=== PATIENT | female | born 1960 | race Caucasian/White ===

== ENCOUNTER 2017-02-20 11:43 | Inpatient (IN) ==
--- NOTE | 2017-02-20 12:11 | Emergency Department Report ---
Seizure HPI - General Chief Complaint: Seizure <Magdi Crowder Q - 02/20/17 16:49> Stated Complaint: seizure <Magdi Crowder Q - 02/20/17 16:49> Time Seen by Provider: 02/20/17 12:04 <Magdi Crowder Q - 02/20/17 16:49> Source: EMS, other ([facility] nurses who did call report) <JoeyFany Zulema 02/20/17 12:12> Mode of arrival: EMS <BettechristianoFany Zulema 02/20/17 12:12> Limitations: altered mental status <BettechristianoFany Zulema 02/20/17 12:12> - History of Present Illness MD complaint: seizure <JoeyFany Zulema 02/20/17 12:12> Onset (ago): minute(s) (20 minutes ago approximately) <BettechristianoFany Zulema 12:12> Description of Episode: loss of consciousness, bowel incontinence <Bettechristiano Fany Zulema 02/20/17 12:12> Witnessed: yes - by bystander <BettechristianoFany N 02/20/17 12:12> Trauma: No <JoeyFany Zulema 02/20/17 12:12> Seizure History: none <BettechristianoFany Zulema 02/20/17 12:12> Place: other ([place]) <JoeyFany Zulema 02/20/17 12:12> Possible Precipitating Event: lack of sleep, stress, medication <BettechristianoFany Zulema 02/20/17 12:12> Associated symptoms: other (Unable to obtain associated symptoms due to patient status) <BettechristianoFany Zulema 02/20/17 12:12> Treatments prior to arrival: none <BettechristianoFany Zulema 02/20/17 12:12> - Related Data Home Medications Medication Instructions Recorded Confirmed Acetaminophen 650 mg PO Q4H PRN 02/20/17 02/20/17 Alum-Mag Hydroxide-Simeth Liq 30 ml PO Q2H PRN 02/20/17 02/20/17 Benadryl 50 mg INJ Q8H PRN 02/20/17 02/20/17 Haldol 5 mg INJ Q4H PRN 02/20/17 02/20/17 Haldol 5 mg PO Q4H PRN 02/20/17 02/20/17 LORazepam INJ 2 mg INJ Q4H PRN 02/20/17 02/20/17 Lorazepam 2 mg PO Q4H PRN 02/20/17 02/20/17 Milk of Magnesia 30 ml PO DAILY PRN 02/20/17 02/20/17 Nicotine 1 patch TD DAILY 02/20/17 02/20/17 Nicotine Gum 2 mg PO Q2H PRN 02/20/17 02/20/17 Vistaril 50 mg PO Q8H PRN 02/20/17 02/20/17 <Magdi Crowder Q - 02/20/17 16:49> Allergies Allergy/AdvReac Type Severity Reaction Status Date / Time No Known Allergies Allergy Verified 02/20/17 11:56 <Magdi Crowder Q - 02/20/17 16:49> Review of Systems Limitations: ROS unobtainable due to patient's medical condition (Obtained from nurse at as far as recent history) <Fany Cook N 02/20/17 12:12> Constitutional: Reports: weight change (has had weight loss over the last few months). Denies: fever, chills <Rajeev Cooka 02/20/17 12:12> ENT: Denies: throat pain <NoRajeev alvaradoa 02/20/17 12:12> Cardiovascular: Denies: syncope <NoRajeev alvaradoa 02/20/17 12:12> Respiratory: Denies: cough <NoDyeresa 02/20/17 12:12> Gastrointestinal: Denies: nausea, vomiting, diarrhea <NoDyeresa 12:12> Integumentary: Denies: rash <NoRajeev alvaradoa 02/20/17 12:12> Neurological: Reports: confusion <NoRajeev alvaradoa 02/20/17 12:12> Psychiatric: Reports: depression, suicidal thoughts, visual hallucinations < Rajeev Cooka N 02/20/17 12:12> PFSH Patient Stated Medical History Seizures Yes: TODAY Depression Yes <Magdi Crowdre Q - 02/20/17 16:49> Patient Stated Medical History Seizures Yes: TODAY Depression Yes <Fany Cook 02/20/17 16:39> Surgical History: Unable to obtain due to patient status <Fany Cook 10/08 16:39> Smoking status: Never smoker <Fany Cook 02/20/17 16:39> Substance use type: does not use <Fany Cook 02/20/17 16:39> Alcohol intake frequency: does not drink <Fany Cook 02/20/17 16:39> Physical Exam - Limitations Limitations: altered mental status <Fany Cook 02/20/17 12:12> - General General appearance: alert, in no apparent distress <Fany Cook 02/20/17 12:12> - Normal Exams: Head:: Normocephalic without trauma <Fany Cook 02/20/17 12:12> Eyes:: Pupils are PERRLA w/ EOMI <Fany Cook 02/20/17 12:12> ENMT:: No facial trauma, nasal exudates, pharyngeal erythema, or exudates are noted <Fany Cook 02/20/17 12:12> Neck:: Full range of motion, without adenopathy, JVD, bruits or thyromegaly < Fany Cook 02/20/17 12:12> Chest/Respirations:: Clear all guillaume, with good airflow, and symmetry bilaterally <Fany Cook 02/20/17 12:12> Musculoskeletal:: No tenderness, or deformity noted, good range of motion, all extremities <Fany Cook 02/20/17 12:12> Integumentary:: No rashes, hives, or bruising noted <Fany Cook 02/20/17 12:12> Neurological:: Patient is alert <Fany Cook 02/20/17 12:12> - Cardiovascular Cardiovascular exam: Present: normal rhythm, normal heart sounds. Absent: regular rate (tachycardia) <Fany Cook 02/20/17 12:12> - Abdominal Exam Abdominal exam: Present: soft, tenderness (says "ow" when abdomen palpated but is not guarding at all). Absent: guarding, rebound <Fany Cook 02/20/17 12:12> - Neurological Exam Neurological exam: Present: alert, other (States that she does not know where she is. She does follow commands but not consistently) <Fany Cook N 12:12> - Psychiatric Psychiatric exam: Present: agitated <Fany Cook 02/20/17 12:12> Course - Consultations Consultation #1: Did speak with Dr Bobby regarding HPI, labs, CT, history, and examination. He does recommend IV decadron at this time. He is ok with admission to [facility] and proceeding with workup to find primary source of cancer including CT of chest/ abdomen/pelvis today. <Fany Cook N 02/20/17 16:39> Time: 13:56 <Fany Cook 02/20/17 14:11> Additional Consultation(s): [id number]-I did talk with Mary Saeedkhadijahsunitha regarding CT results showing brain edema and lesions most likely metastatic disease. I did inform him of consult conversation with Oncology and will try for admission here at [facility] for workup. He does live 3 hours away and will come to the hospital. His daughter does live closer, in [place], and he will have her come to hospital to help with history and decision making. <Fany Cook 02/20/17 14:11> Vital Signs Temperature 98.7 F 02/20/17 11:45 Pulse Rate 132 H 02/20/17 11:45 Respiratory Rate 24 02/20/17 11:45 Blood Pressure 129/109 H 02/20/17 11:45 Pulse Oximetry 94 02/20/17 11:45 Temperature 100.9 F H 02/20/17 16:10 Pulse Rate 102 H 02/20/17 16:10 Respiratory Rate 32 H 02/20/17 16:10 Blood Pressure 107/59 02/20/17 16:10 Pulse Oximetry 96 02/20/17 16:10 <aMgdi Crowder Q - 02/20/17 16:49> Seizure - MDM Narrative Medical decision making narrative: Elevated WBC of 14.3 with 86% neutrophils noted. Lactate elevated at 2.8 and procalcitonin is 2.18. UA is normal. UDS is negative. Lactate and procal may be elevated due to recent seizure and not sepsis. CT scan does show lesion in the brain with surrounding edema. Did talk with Dr johnson. He does recommend 20gm Dexamethasone IV x1 in ER, MRI of brain and CT of chest/abdomen and pelvis. Did speak with Dr Mejia with the hospitalist service. He will admit at this time. Did also speak with Harry Kaur, her and update given on ER visit, labs, and Ct. Her daughter Blanca also in unit and Adrienne did not recognize her. She was updated as well on patient status and all questions answered at this time. <Fany Cook - 02/20/17 16:39> - Differential Diagnosis Likely: focal seizure, generalized seizure, new onset seizure <Fany Cook - 02/20/17 12:12> - Lab Data Attestation: I reviewed the patient's lab results. <Fany Cook N - 02/20/17 16:39> Result diagrams: 02/20/17 12:18 02/20/17 12:18 <Magdi Crowder Q - 02/20/17 16:49> Lab Results 02/20/17 02/20/17 02/20/17 Range/Units 12:18 12:18 12:34 WBC 14.3 H (4.5-11.0) T/MM3 RBC 4.26 (4.00-5.20) M/MM3 Hgb 10.8 L (12-16) GM/DL Hct 36.1 (36-46) % MCV 84.7 (80-100) UM3 MCH 25.4 L (26-34) UUG MCHC 29.9 L (31-37) GM/DL RDW Std Deviation 47.7 (36.9-50.2) FL Plt Count 429 H (130-400) T/MM3 MPV 8.9 L (9.4-12.4) UM3 Immature Gran % (Auto) Not performed Neut % (Auto) Not performed Lymph % (Auto) Not performed [place] % (Auto) Not performed Eos % (Auto) Not performed Baso % (Auto) Not performed Neut # Not performed Lymph # Not performed [place] # Not performed Baso # Not performed Abs Immat Gran (auto) Not performed Neutrophils % (Manual) 86.0 H (33-66) % Band Neutrophils % 4.0 (0-6) % Lymphocytes % (Manual) 7.0 L (23-45) % Monocytes % (Manual) 1.0 (0-9.0) % Basophils % (Manual) 2.0 (0-2) % Neutrophils # (Manual) 12.3 H (1.8-7.7) T/MM3 Band Neutrophils # 0.6 T/MM3 Lymphocytes # (Manual) 1.0 (1-4.8) T/MM3 Monocytes # (Manual) 0.1 (0-0.8) T/MM3 Basophils # (Manual) 0.3 H (0-0.2) T/MM3 RBC Morph Comment 1+ hypochromasia Turbidity 20 (0-20) Sodium 140 (134-144) MEQ/L Potassium 4.9 (3.6-5) MEQ/L Chloride 102 (98-107) MEQ/L Carbon Dioxide 26 (22-30) MEQ/L Anion Gap 12 (5-15) MEQ/L BUN 14.0 (7-17) MG/DL Creatinine 0.7 (0.7-1.2) MG/DL GFR Calculation 86 BUN/Creatinine Ratio 20 (6-26) RATIO Glucose 188 H (65-110) MG/DL Calculated Osmolality 275 (261-280) MOSM/KG Calcium 8.9 (8.4-10.2) MG/DL Total Bilirubin 0.30 (0.20-1.30) MG/DL Icterus Index 2 (0-7) AST 27 (14-36) U/L ALT 13 (9-52) U/L Alkaline Phosphatase 107 (38-126) U/L Total Protein 6.9 (6.3-8.2) G/DL Albumin 3.5 (3.5-5.0) G/DL Globulin 3.4 (2.4-3.6) G/DL Albumin/Globulin Ratio 1.0 L (1.1-2.2) RATIO Plasma Lactate (0.6-2.2) MMOL/L Procalcitonin NG/ML Specimen Hemolysis 15 (0-25) Ur Collection Type Urine, catheter Urine Color Yellow (YELLOW) Urine Clarity Clear Urine pH 5.5 (5.0-8.0) Ur Specific [place] 1.010 L (1.015-1.025) Urine Protein Negative (NEGATIVE) Urine Glucose (UA) Negative (NEGATIVE) Urine Ketones Negative (NEGATIVE) Urine Occult Blood Negative (NEGATIVE) Urine Nitrate Negative (NEGATIVE) Urine Bilirubin Negative (NEGATIVE) Urine Urobilinogen 0.2 (NORMAL) EU/DL Ur Leukocyte Esterase Negative (NEGATIVE) Urinalysis Comment Microscopic not ind. Urine Opiates Screen ng/mL Ur Oxycodone Screen ng/mL Urine Methadone Screen ng/mL Ur Propoxyphene Screen ng/mL Ur Barbiturates Screen ng/mL U Tricyclic Antidepress ng/mL Ur Phencyclidine Scrn ng/mL Ur Amphetamines Screen ng/mL U Methamphetamines Scrn ng/mL U Benzodiazepines Scrn ng/mL Urine Cocaine Screen ng/mL U Cannabinoids Screen ng/mL 02/20/17 02/20/17 02/20/17 Range/Units 12:34 13:13 13:13 WBC (4.5-11.0) T/MM3 RBC (4.00-5.20) M/MM3 Hgb (12-16) GM/DL Hct (36-46) % MCV (80-100) UM3 MCH (26-34) UUG MCHC (31-37) GM/DL RDW Std Deviation (36.9-50.2) FL Plt Count (130-400) T/MM3 MPV (9.4-12.4) UM3 Immature Gran % (Auto) Neut % (Auto) Lymph % (Auto) [place] % (Auto) Eos % (Auto) Baso % (Auto) Neut # Lymph # [place] # Baso # Abs Immat Gran (auto) Neutrophils % (Manual) (33-66) % Band Neutrophils % (0-6) % Lymphocytes % (Manual) (23-45) % Monocytes % (Manual) (0-9.0) % Basophils % (Manual) (0-2) % Neutrophils # (Manual) (1.8-7.7) T/MM3 Band Neutrophils # T/MM3 Lymphocytes # (Manual) (1-4.8) T/MM3 Monocytes # (Manual) (0-0.8) T/MM3 Basophils # (Manual) (0-0.2) T/MM3 RBC Morph Comment Turbidity (0-20) Sodium (134-144) MEQ/L Potassium (3.6-5) MEQ/L Chloride (98-107) MEQ/L Carbon Dioxide (22-30) MEQ/L Anion Gap (5-15) MEQ/L BUN (7-17) MG/DL Creatinine (0.7-1.2) MG/DL GFR Calculation BUN/Creatinine Ratio (6-26) RATIO Glucose (65-110) MG/DL Calculated Osmolality (261-280) MOSM/KG Calcium (8.4-10.2) MG/DL Total Bilirubin (0.20-1.30) MG/DL Icterus Index (0-7) AST (14-36) U/L ALT (9-52) U/L Alkaline Phosphatase (38-126) U/L Total Protein (6.3-8.2) G/DL Albumin (3.5-5.0) G/DL Globulin (2.4-3.6) G/DL Albumin/Globulin Ratio (1.1-2.2) RATIO Plasma Lactate 2.8 H (0.6-2.2) MMOL/L Procalcitonin 2.16 H* NG/ML Specimen Hemolysis (0-25) Ur Collection Type Urine Color (YELLOW) Urine Clarity Urine pH (5.0-8.0) Ur Specific [place] (1.015-1.025) Urine Protein (NEGATIVE) Urine Glucose (UA) (NEGATIVE) Urine Ketones (NEGATIVE) Urine Occult Blood (NEGATIVE) Urine Nitrate (NEGATIVE) Urine Bilirubin (NEGATIVE) Urine Urobilinogen (NORMAL) EU/DL Ur Leukocyte Esterase (NEGATIVE) Urinalysis Comment Urine Opiates Screen Negative ng/mL Ur Oxycodone Screen Negative ng/mL Urine Methadone Screen Negative ng/mL Ur Propoxyphene Screen Negative ng/mL Ur Barbiturates Screen Negative ng/mL U Tricyclic Antidepress Negative ng/mL Ur Phencyclidine Scrn Negative ng/mL Ur Amphetamines Screen Negative ng/mL U Methamphetamines Scrn Negative ng/mL U Benzodiazepines Scrn Negative ng/mL Urine Cocaine Screen Negative ng/mL U Cannabinoids Screen Negative ng/mL <Magdi Crowder Q - 02/20/17 16:49> Lab Results 06/01/17 06/01/17 06/01/17 Range/Units 12:18 12:18 12:34 WBC 14.3 H (4.5-11.0) T/MM3 RBC 4.26 (4.00-5.20) M/MM3 Hgb 10.8 L (12-16) GM/DL Hct 36.1 (36-46) % MCV 84.7 (80-100) UM3 MCH 25.4 L (26-34) UUG MCHC 29.9 L (31-37) GM/DL RDW Std Deviation 47.7 (36.9-50.2) FL Plt Count 429 H (130-400) T/MM3 MPV 8.9 L (9.4-12.4) UM3 Immature Gran % (Auto) Not performed Neut % (Auto) Not performed Lymph % (Auto) Not performed [place] % (Auto) Not performed Eos % (Auto) Not performed Baso % (Auto) Not performed Neut # Not performed Lymph # Not performed [place] # Not performed Baso # Not performed Abs Immat Gran (auto) Not performed Neutrophils % (Manual) 86.0 H (33-66) % Band Neutrophils % 4.0 (0-6) % Lymphocytes % (Manual) 7.0 L (23-45) % Monocytes % (Manual) 1.0 (0-9.0) % Basophils % (Manual) 2.0 (0-2) % Neutrophils # (Manual) 12.3 H (1.8-7.7) T/MM3 Band Neutrophils # 0.6 T/MM3 Lymphocytes # (Manual) 1.0 (1-4.8) T/MM3 Monocytes # (Manual) 0.1 (0-0.8) T/MM3 Basophils # (Manual) 0.3 H (0-0.2) T/MM3 RBC Morph Comment 1+ hypochromasia Turbidity 20 (0-20) Sodium 140 (134-144) MEQ/L Potassium 4.9 (3.6-5) MEQ/L Chloride 102 (98-107) MEQ/L Carbon Dioxide 26 (22-30) MEQ/L Anion Gap 12 (5-15) MEQ/L BUN 14.0 (7-17) MG/DL Creatinine 0.7 (0.7-1.2) MG/DL GFR Calculation 86 BUN/Creatinine Ratio 20 (6-26) RATIO Glucose 188 H (65-110) MG/DL Calculated Osmolality 275 (261-280) MOSM/KG Calcium 8.9 (8.4-10.2) MG/DL Total Bilirubin 0.30 (0.20-1.30) MG/DL Icterus Index 2 (0-7) AST 27 (14-36) U/L ALT 13 (9-52) U/L Alkaline Phosphatase 107 (38-126) U/L Total Protein 6.9 (6.3-8.2) G/DL Albumin 3.5 (3.5-5.0) G/DL Globulin 3.4 (2.4-3.6) G/DL Albumin/Globulin Ratio 1.0 L (1.1-2.2) RATIO Plasma Lactate (0.6-2.2) MMOL/L Procalcitonin NG/ML Specimen Hemolysis 15 (0-25) Ur Collection Type Urine, catheter Urine Color Yellow (YELLOW) Urine Clarity Clear Urine pH 5.5 (5.0-8.0) Ur Specific [place] 1.010 L (1.015-1.025) Urine Protein Negative (NEGATIVE) Urine Glucose (UA) Negative (NEGATIVE) Urine Ketones Negative (NEGATIVE) Urine Occult Blood Negative (NEGATIVE) Urine Nitrate Negative (NEGATIVE) Urine Bilirubin Negative (NEGATIVE) Urine Urobilinogen 0.2 (NORMAL) EU/DL Ur Leukocyte Esterase Negative (NEGATIVE) Urinalysis Comment Microscopic not ind. Urine Opiates Screen ng/mL Ur Oxycodone Screen ng/mL Urine Methadone Screen ng/mL Ur Propoxyphene Screen ng/mL Ur Barbiturates Screen ng/mL U Tricyclic Antidepress ng/mL Ur Phencyclidine Scrn ng/mL Ur Amphetamines Screen ng/mL U Methamphetamines Scrn ng/mL U Benzodiazepines Scrn ng/mL Urine Cocaine Screen ng/mL U Cannabinoids Screen ng/mL 02/20/17 02/20/17 02/20/17 Range/Units 12:34 13:13 13:13 WBC (4.5-11.0) T/MM3 RBC (4.00-5.20) M/MM3 Hgb (12-16) GM/DL Hct (36-46) % MCV (80-100) UM3 MCH (26-34) UUG MCHC (31-37) GM/DL RDW Std Deviation (36.9-50.2) FL Plt Count (130-400) T/MM3 MPV (9.4-12.4) UM3 Immature Gran % (Auto) Neut % (Auto) Lymph % (Auto) [place] % (Auto) Eos % (Auto) Baso % (Auto) Neut # Lymph # [place] # Baso # Abs Immat Gran (auto) Neutrophils % (Manual) (33-66) % Band Neutrophils % (0-6) % Lymphocytes % (Manual) (23-45) % Monocytes % (Manual) (0-9.0) % Basophils % (Manual) (0-2) % Neutrophils # (Manual) (1.8-7.7) T/MM3 Band Neutrophils # T/MM3 Lymphocytes # (Manual) (1-4.8) T/MM3 Monocytes # (Manual) (0-0.8) T/MM3 Basophils # (Manual) (0-0.2) T/MM3 RBC Morph Comment Turbidity (0-20) Sodium (134-144) MEQ/L Potassium (3.6-5) MEQ/L Chloride (98-107) MEQ/L Carbon Dioxide (22-30) MEQ/L Anion Gap (5-15) MEQ/L BUN (7-17) MG/DL Creatinine (0.7-1.2) MG/DL GFR Calculation BUN/Creatinine Ratio (6-26) RATIO Glucose (65-110) MG/DL Calculated Osmolality (261-280) MOSM/KG Calcium (8.4-10.2) MG/DL Total Bilirubin (0.20-1.30) MG/DL Icterus Index (0-7) AST (14-36) U/L ALT (9-52) U/L Alkaline Phosphatase (38-126) U/L Total Protein (6.3-8.2) G/DL Albumin (3.5-5.0) G/DL Globulin (2.4-3.6) G/DL Albumin/Globulin Ratio (1.1-2.2) RATIO Plasma Lactate 2.8 H (0.6-2.2) MMOL/L Procalcitonin 2.16 H* NG/ML Specimen Hemolysis (0-25) Ur Collection Type Urine Color (YELLOW) Urine Clarity Urine pH (5.0-8.0) Ur Specific [place] (1.015-1.025) Urine Protein (NEGATIVE) Urine Glucose (UA) (NEGATIVE) Urine Ketones (NEGATIVE) Urine Occult Blood (NEGATIVE) Urine Nitrate (NEGATIVE) Urine Bilirubin (NEGATIVE) Urine Urobilinogen (NORMAL) EU/DL Ur Leukocyte Esterase (NEGATIVE) Urinalysis Comment Urine Opiates Screen Negative ng/mL Ur Oxycodone Screen Negative ng/mL Urine Methadone Screen Negative ng/mL Ur Propoxyphene Screen Negative ng/mL Ur Barbiturates Screen Negative ng/mL U Tricyclic Antidepress Negative ng/mL Ur Phencyclidine Scrn Negative ng/mL Ur Amphetamines Screen Negative ng/mL U Methamphetamines Scrn Negative ng/mL U Benzodiazepines Scrn Negative ng/mL Urine Cocaine Screen Negative ng/mL U Cannabinoids Screen Negative ng/mL <Fany Cook N - 02/20/17 14:11> - Radiology Data MDM Radiology Attestation Statement: I reviewed the patient's radiology results. <Fany Cook N - 02/20/17 16:39> Disposition Clinical Impression: New onset seizure <Magdi Crowder Q - 02/20/17 16:49> Disposition: [address] [facility] Acute Care <Magdi Crowder Q - 02/20/17 16:49> Condition: Stable <Magdi Crowder Q - 02/20/17 16:49> Prescriptions: No Action Alum-Mag Hydroxide-Simeth Liq 30 ml PO Q2H PRN PRN Reason: Prn Orders Vistaril 50 mg PO Q8H PRN PRN Reason: Anxiety Haldol 5 mg INJ Q4H PRN PRN Reason: Agitation Lorazepam 2 mg PO Q4H PRN PRN Reason: Agitation Nicotine Gum 2 mg PO Q2H PRN PRN Reason: Prn Orders Acetaminophen 650 mg PO Q4H PRN PRN Reason: Pain /Fever Milk of Magnesia 30 ml PO DAILY PRN PRN Reason: Constipation Haldol 5 mg PO Q4H PRN PRN Reason: Agitation LORazepam INJ 2 mg INJ Q4H PRN PRN Reason: Agitation Benadryl 50 mg INJ Q8H PRN PRN Reason: Agitation Nicotine 1 patch TD DAILY <Magdi Crowder Q - 02/20/17 16:49> Time of Disposition: 15:25 <Magdi Crowder Q - 02/20/17 16:49> - Seen By: midlevel <Magdi Crwoder Q - 02/20/17 16:49> midlevel <Fany Cook N - 02/20/17 16:39>
[2017-02-20] MEDS: NS 1,000 ML IV SCH ×4 (12:17→20:30)
--- NOTE | 2017-02-20 13:15 | CT Scan Report ---
Indication: new onset seizures, altered LOC PROCEDURE: CT head/brain wo con: Encounter: Initial Comparison: None Technique: Axial CT images through the head were performed without contrast. Iterative Reconstruction dose reducing technique was utilized. FINDINGS: Focal areas of vasogenic edema in the left frontal lobe both superiorly and anteriorly. There is also a focus of rounded higher attenuation on axial image #37 measuring 0.7 cm in diameter. This could be arising from a gyrus or potentially extra-axial. This measures 45 Hounsfield units in density. There is also an area of gyral nodularity with higher attenuation seen on axial image #43 measuring 0.8 cm in diameter adjacent to the larger area of vasogenic edema. There is a small area of vasogenic edema noted in the right occipital lobe on axial image #22 with some possible gyral nodularity nearby. Scattered areas of low attenuation in the frontoparietal white matter consistent with chronic microvascular ischemia. No subdural or epidural hematoma identified. The ventricles are normal. No midline shift identified. No calvarial fracture. The mastoid air cells are clear. Paranasal sinuses are grossly clear. Impression: Areas of vasogenic edema in the left frontal and right parietal lobes with associated rounded higher attenuation nodules raising strong suspicion for metastatic disease. Intracranial infection is also within the differential diagnosis. Hemorrhagic contusions are felt to be less likely given the reported absence of head trauma. Recommend contrast enhanced MRI for further evaluation. Findings were discussed with Dr. Crowder at 1308 on February 20, 2017. .
[2017-02-20] MEDS ORDERED: DEXAMETHASONE 4 MG/ML INJECTION IVP ONE (13:55)
[2017-02-20] MEDS ORDERED: METOPROLOL 5mg/5ml INJECTION IVP ONE (14:55)
[2017-02-20] MEDS ORDERED: DEXAMETHASONE IV ONE (15:00)
[2017-02-20] MEDS ORDERED: NS IV ONE (15:00)
[2017-02-20] MEDS ORDERED: PHENYTOIN 100 MG/2 ML IV ONE (15:49)
[2017-02-20] MEDS ORDERED: ACETAMINOPHEN 325 MG TABLET PO PRN (17:01)
[2017-02-20] MEDS ORDERED: HALOPERIDOL 5 MG/ML INJECTION IM PRN (17:01)
[2017-02-20] MEDS ORDERED: LORazepam 2 MG TABLET PO PRN (17:01)
[2017-02-20] MEDS ORDERED: HydrOXYzine 50 MG TABLET PO PRN (17:01)
[2017-02-20] MEDS ORDERED: SALINE FLUSH 10ml SYRINGE ONE (17:26)
[2017-02-20] MEDS ORDERED: NS 100 ML ONE (17:26)
[2017-02-20] MEDS ORDERED: IOHEXOL 300mg/ml 100ml INJECTION ONE (17:26)
--- NOTE | 2017-02-20 17:26 | History & Physical Report ---
History of Present Illness Date: Chief complaint: New onset seizure HPI: Pt came to the ED refered from a psych facility where she had a witnessed grand mal seizure. Per available data I do not see any SSRI, or wellbutrin on this patient medication list. Also UDS was negative. Per ED reports, this event was witnessed; pt had loss of bowel control, and LOC. On initial workup pt has multiple brain lesions that could be infectious or neoplastic. WBC, Lactate and pro-calcitonin elevated. Calcium normal. Pt has H.O being paranoid for at least 5 years. Daughter reports pt had spells of aggresiveness and paranoia with her and brother and had been suicidal in the past. She had been diagnosed with bipolar dissorder and while on treatment apparently improved. No known H.O Cancer, uknown if pt has any risks for HIV, or if she has any auto-immune dissorder. She has been a heavy smoker for many years and has a reported wt loss since Junuary of about 50 pounds. No previuos H/O seizures. On initial interview pt appears to be paranoid. Would not open her mouth for exam. Pupills are about 2mm. Being so miotic I can not comment further, on her eye exam as she would not cooperate. No anisocoria. EOMI appear to be fine but she does not cooperate. She does not answer questions, so it is unknown how oriented she may be. Review of Systems ROS unobtainable: due to mental status Review of systems: Pt has had profound wt loss Un[place]w if fevers. Unknown if cancer. She is non verbal. Information obtained from her daughter who saw her last on . - Integumentary/Breasts Integumentary: Absent: rash - Neurological Neurological: Present: convulsions - Psychiatric Psychiatric: Present: paranoia PFS Patient Stated Medical History Seizures Yes: TODAY Other Infectious Yes Depression Yes Eating Disorder Yes: lack of eating since 09/2016 Surgical History: Unable to obtain due to patient status Smoking status: Never smoker Substance use type: unknown (Unknown H.O Drug abuse, UDS negative. ) Medications Home Medications Medication Instructions Recorded Confirmed Type Acetaminophen 650 mg PO Q4H PRN 02/20/17 02/20/17 History Alum-Mag Hydroxide-Simeth Liq 30 ml PO Q2H PRN 02/20/17 02/20/17 History Benadryl 50 mg INJ Q8H PRN 02/20/17 02/20/17 History Haldol 5 mg INJ Q4H PRN 02/20/17 02/20/17 History Haldol 5 mg PO Q4H PRN 02/20/17 02/20/17 History LORazepam INJ 2 mg INJ Q4H PRN 02/20/17 02/20/17 History Lorazepam 2 mg PO Q4H PRN 02/20/17 02/20/17 History Milk of Magnesia 30 ml PO DAILY PRN 02/20/17 02/20/17 History Nicotine 1 patch TD DAILY 02/20/17 02/20/17 History Nicotine Gum 2 mg PO Q2H PRN 02/20/17 02/20/17 History Vistaril 50 mg PO Q8H PRN 02/20/17 02/20/17 History Allergies Allergy/AdvReac Type Severity Reaction Status Date / Time No Known Allergies Allergy Verified 02/20/17 11:56 Exam Vital Signs: Temp Pulse Resp BP Pulse Ox 100.9 F H 102 H 32 H 107/59 96 02/20/17 16:10 02/20/17 16:10 02/20/17 16:10 02/20/17 16:10 02/20/17 16:10 Telemetry Rhythm: Sinus Rhythm Height: 5 ft 5 in Weight: 46.3 kg Comments: ON general exam this is a 56YO female that appears to be in NAD. She is not aggresive but refuses to cooperate with most of her physical exam. Unknown how oriented she is, apparently did not recognize her daughter. I do not see any signs of respiratory distress, she appears to be well perfused. - Constitutional Present: no acute distress, somnolent - Routine HEENT Exam Head: Present: normocephalic Eye: Present: EOMI, PERRL - Detailed Head Exam Comments: Pt does not cooperate to exam. - Routine Neck Exam Present: supple Comments: Pt does not cooperate to exam. - Routine Chest/Breast/Axilla Exam Comments: Pt does not cooperate to exam. - Routine Respiratory Exam Comments: Pt does not cooperate to exam. Results - Labs CBC & Chem 7: 02/20/17 12:18 02/20/17 12:18 Assessment and Plan DVT Prophylaxis: SCD's GI Prophylaxis: Protonix Assessment and Plan: This is a patient that presents with new onset seizures and multiple brain lesions. The initial report states this could be neoplastic or infectious. Pt has a 5 year H.O Psychiatric problems with psychosis. It would be very atypical to develop Schizophrenia at this age. Other problems including auto-immune dissorders, endocrine dissorders, nutritional deficiencies are possible. At this time will focus on possibility of a metastatic process with/without infection. Possible source of infection could be lungs (afer a seizure - aspiration) but pt is pretty much asymptomatic. H.O Heavy tobacco abuse favor a tumor, with lung cancer being a likely cause. Daughter states pt has NO KNOWN H.O TB, HIV, or cancer. CT report done today "..................................................... Impression: Areas of vasogenic edema in the left frontal and right parietal lobes with associated rounded higher attenuation nodules raising strong suspicion for metastatic disease. Intracranial infection is also within the differential diagnosis. Hemorrhagic contusions are felt to be less likely given the reported absence of head trauma. Recommend contrast enhanced MRI for further evaluation. ......................................................................" Differential diagnosis 1) New onset seizures, associated with multiple brain lesions. Pt was loaded with Dilantin - will continue at 100mg PO TID. a) Metastatic lesions from ? lung ? breast ? Other solid organs ? No hypercalcemia. b) Infection (With no known source at this time). No suggestion of emboli to the extremities to suspect endocarditis. Work up I have started workup as follows - will repeat Lactic acid if it is lower this could be related to seizure. If it is higher or the same this could be due to infection. Will check CT brain with contrast, CT Chest/Abdomen and Pelvis. This would assist in pointing a primary source of tumor (lungs, liver, pancreas, kindeys, etc) or an occult infection (liver abscess, diverticular abscess, etc). Will readdress once testing is complete. Pt was cultured anticipating the need of antibiotics. May need to consult oncology in the AM. 2) H/O Psychosis for 5 years. - May consult psychiatry in the AM. If initial workup favors infection will probably need ID to advise, and will check HIV, and for other processes ( i.e - if lungs - nocardia coverage would be needed). 3) Anemia, will workup electively. 4) Hyperglycemia. - Check HbA1c - Could be related to steroids. - Will do accuchecks and cover with insulin as needed. Sepsis Assessment - Evaluation Sepsis screening result: Severe Sepsis Risk Confirmed Suspected Infection: No SIRS Criteria: WBC > or equal to 12,000, blood sugar >120 in non-diabetic Hospital Course Summary Disclaimer: The visit summary below is not to be considered part of the above Progress Note.
[2017-02-20] MEDS: DEXAMETHASONE 4 MG/ML INJECTION IVP SCH (18:35)
[2017-02-20] MEDS: PANTOPRAZOLE 40 MG INJECTION IVP SCH (19:43)
[2017-02-20] MEDS ORDERED: PHENYTOIN 100 MG/2 ML IV SCH (21:00)
[2017-02-20] MEDS: SALINE FLUSH 10ml SYRINGE IV PRN (21:03)
[2017-02-21] MEDS: DEXAMETHASONE 4 MG/ML INJECTION IVP SCH ×5 (00:54→23:22)
[2017-02-21] MEDS: NS 1,000 ML IV SCH ×3 (01:17→18:12)
[2017-02-21] MEDS: PHENYTOIN 100 MG/2 ML IVP SCH ×3 (08:29→21:02)
[2017-02-21] MEDS: PANTOPRAZOLE 40 MG INJECTION IVP SCH (08:30)
[2017-02-21] MEDS: NICOTINE PATCH REMOVAL TD SCH (08:37)
--- NOTE | 2017-02-21 08:51 | CT Scan Report ---
Indication: New Cancer? PROCEDURE: CT head/chest/abd/pelv w con: Encounter: Initial Comparison: Head CT from the same date CT head with: Comparison: None Technique: Axial CT images through the head were performed with IV contrast. Iterative Reconstruction dose reducing technique was utilized. Contrast: Omnipaque 300 67 mL FINDINGS: Focal edema is again noted in the left frontal and parietal lobes. There is a round enhancing mass seen in the area of high attenuation noted previously in the subcortical left frontal lobe. This measures 8 to 9 mm in size. There is also an enhancing lesion in the left parietal lobe in the area of differential attenuation seen on the comparison CT measuring 9 mm in size. There is also an enhancing 6 mm mass at the right occipital ramirez-white junction. No acute intracranial hemorrhage. No obvious territorial stroke. No mass effect or midline shift. The ventricles are normal. The calvarium is intact. Paranasal sinuses and mastoid air cells are grossly clear. Impression: Intracranial metastases. CT chest, abdomen and pelvis with contrast. Comparison: None Technique: Axial CT images were performed through the chest, abdomen and pelvis after the administration of intravenous contrast. Coronal and sagittal two-dimensional reformats. Automated Exposure Control and Iterative Reconstruction dose reducing techniques were utilized. Contrast: Omnipaque 300 67 mL Findings: Chest: There are numerous confluent pleural masses seen filling the right chest cavity with volume loss and associated small pleural effusion. These are too numerous to count but are circumferential around the visceral and parietal pleura. The left lung shows a small nodule in the lingula measuring 0.7 cm in size. There is also a left lower lobe pulmonary nodule measuring 1.5 cm in size. No pneumonia or pneumothorax. The central airways are patent. The thyroid gland appears normal. No axillary adenopathy. There does not appear to be any true mediastinal adenopathy despite the pleural mass along the right mediastinal border. The heart size is normal. Great vessels are within normal limits. No pericardial effusion. There is some slightly increased density in the subareolar right breast area. Abdomen/pelvis: The liver enhances normally. Numerous gallstones within the gallbladder. No bile duct dilatation. The spleen, pancreas and adrenal glands are within normal limits. Small right renal stone. The knees are otherwise normal. No abdominal or pelvic lymphadenopathy. The bladder is mildly distended but otherwise normal. Uterus is unremarkable. No free fluid. No evidence of a bowel obstruction. Bone windows show degenerative change and scoliosis in the spine. No obvious lytic or blastic bony lesions. There are some mild right rib deformities which appear chronic. Impression: 1. Extensive pleural mass throughout the right chest. The appearance is most consistent with malignant mesothelioma with possible contralateral pulmonary metastases. The other differential considerations are pleural metastatic disease and invasive malignant thymoma. Recommend pleural biopsy. 2. No metastatic disease appreciated in the abdomen or pelvis. There is a preliminary report by [employer]. .
[2017-02-21] MEDS ORDERED: NICOTINE 21 MG PATCH TD SCH (09:00)
[2017-02-21] MEDS: NICOTINE 21 MG PATCH TD SCH (09:11)
--- NOTE | 2017-02-21 10:03 | Progress Note ---
Subjective: Pt is awake and conversant. Only complaint is abdominal pain if she tries to sit up in the bed. No seizures over night. Not agitated, still a bit paranoid. Objective Vital signs: Temp Pulse Resp BP Pulse Ox 98 F 82 25 H 126/73 95 02/21/17 03:45 02/21/17 08:00 02/21/17 08:00 02/21/17 09:00 02/21/17 08:00 Rhythm: Normal Sinus Rhythm Weight: 45.5 kg - Constitutional Present: no acute distress Comments: A bit more cooperative than yesterday. Pt is cachectic. - Routine HEENT Exam Head: Present: normocephalic Eye: Present: PERRL - Routine Respiratory Exam Present: CTA bilaterally - Routine Cardiovascular Exam Present: RRR - Routine Abdominal Exam Present: soft - Routine Extremities Exam Absent: cyanosis, clubbing, edema - Routine Skin Exam Present: dry - Routine Neurological Exam Present: alert - Routine Psychiatric Exam Present: paranoid Results - Labs CBC & Chem 7: 02/21/17 04:58 02/21/17 04:58 Labs: Short CBC 02/21/17 Range/Units 04:58 WBC 8.0 D (4.5-11.0) T/MM3 Hgb 10.5 L (12-16) GM/DL Hct 35.1 L (36-46) % Plt Count 420 H (130-400) T/MM3 BMP 02/21/17 04:58 Sodium 142 Potassium 4.0 D Chloride 104 Carbon Dioxide 25 BUN 10.0 Creatinine 0.6 L Glucose 138 H Calcium 8.7 Liver Function 02/21/17 Range/Units 04:58 Total Bilirubin 0.30 (0.20-1.30) MG/DL AST 27 (14-36) U/L ALT 23 (9-52) U/L Alkaline Phosphatase 113 (38-126) U/L Albumin 3.5 (3.5-5.0) G/DL Assessment and Plan Assessment and Plan: This is a patient that presented to us on 02/20 with new onset seizures and multiple brain lesions. Further exam showed multiple lung nodules suggesting of a primary tumor with brain mets. Pt was given Dexamethasone and loaded with Dilantin, with no further seizures. Pt has a 5 year H.O Psychiatric problems with psychosis. A consult to Oncology has been placed. Differential diagnosis 1) New onset seizures, associated with multiple brain lesions, probably due to a primary lung tumor. Abdomen was not found to have a large mass to explain the lung masses. Probably stage IV lung cancer. -No hyponatremia or hypercalcemia. 2) H/O Psychosis for 5 years; not agitated today. 3) Anemia, will workup electively. 4) Hyperglycemia probably related to Steroids (IV). - Check HbA1c 5) Pt had elevated lactic acid on admission which cleared later - this was most likely related to her seizure. Pro-calcitonin was high and WBC was high but WBC is normal today and pt is not on antibiotics and appears to be stable. LABS ORDERED CBC/CMP/HBA1C Plan - await for heme/onc advise. Speech Therapy evaluation to resume PO. Sepsis Assessment - Evaluation Sepsis screening result: Severe Sepsis Risk SIRS Criteria: none, WBC > or equal to 12,000, blood sugar >120 in non-diabetic Severe Sepsis: none seen - Focused Exam Vital Signs Temp Pulse Resp BP Pulse Ox 02/21/17 09:00 126/73 02/21/17 08:00 82 25 H 131/75 95 02/21/17 07:55 92 02/21/17 06:45 89 30 H 98 02/21/17 06:30 91 29 H 98 02/21/17 06:16 104 H 29 H 02/21/17 06:04 118/74 02/21/17 06:00 98 02/21/17 05:45 101 H 42 H 98 02/21/17 05:30 80 22 96 02/21/17 05:15 89 34 H 97 02/21/17 05:11 119/70 02/21/17 05:00 100 37 H 97 02/21/17 04:45 91 31 H 99 02/21/17 04:30 84 44 H 97 02/21/17 04:15 87 38 H 98 02/21/17 04:00 89 107/57 02/21/17 03:45 98 F 86 36 H 98 02/21/17 03:30 87 32 H 97 02/21/17 03:15 84 34 H 95 02/21/17 03:00 116/73 02/21/17 02:45 81 25 H 96 02/21/17 02:30 80 22 96 02/21/17 02:15 82 33 H 95 02/21/17 02:00 121/75 06/02/17 01:45 89 34 H 95 02/21/17 01:30 84 22 94 02/21/17 01:15 84 23 95 02/21/17 01:00 120/71 02/21/17 00:45 83 23 95 02/21/17 00:30 86 67 H 95 02/21/17 00:15 89 33 H 97 02/21/17 00:00 98.5 F 93 118/63 02/20/17 23:45 92 32 H 97 02/20/17 23:30 94 58 H 97 02/20/17 23:15 93 33 H 97 02/20/17 23:00 119/65 02/20/17 22:45 95 33 H 97 02/20/17 22:30 95 34 H 96 02/20/17 22:15 98 33 H 96 Hospital Course Summary Disclaimer: The visit summary below is not to be considered part of the above Progress Note.
--- NOTE | 2017-02-21 14:12 | Consult Note ---
Oncology HPI - Data of Consult Patient: new to practice (history obtained from , patient alert, oriented but inappropriate at time with her responses. reports went to provider in her home town with history of the weight loss, 50 pounds in past 5 months. Not eating. History of bipolar disorder/depression. Patient came to [facility] as inpatient and witnessed seizure occurred. At time of intake, patient reclining in hospital bed. She is alert, oriented to person, but responses are inappropriate at times, i.e. frequently brings up daughter Blanca, talks about her mom, and when discusses sister, talks as if sister is living. Note sister a year ago brain cancer. comments " She wanted to starve herself." Shakes head no when asked if cough or shortness of air. No comment when asked if having pain, but with palpation of abdomen, will holler "oww.") <Nuha Crow - 02/21/17 14:19> Consult date: 02/21/17 <Nuha Crow - 02/21/17 14:19> Requesting Physician: Dalton Mejia MD <Yaneli Springer - 02/21/17 16:48> Dalton Mejia MD <Nuha Crow - 02/21/17 15:37> - Consult Narrative Reason for consult: brain and lung lesions <Nuha Crow - 02/21/17 14:19> Review of Systems ROS unobtainable: due to mental status <Nuha Crow - 02/21/17 15:37> - Constitutional Constitutional: Present: malaise, weakness, weight loss <Nuha Crow - 11/08 15:37> - Respiratory Respiratory: Present: cough (per , infrequent nonproductive cough) < Nuha Crow - 02/21/17 15:37> - Gastrointestinal Gastrointestinal: Present: abdominal pain. Absent: diarrhea <Nuha Crow - 02/21/17 15:37> - Musculoskeletal Musculoskeletal: Absent: abnormal gait, joint swelling <Nuha Crow 02/21 15:37> - Neurological Neurological: Present: confusion, memory loss <Nuha Crow 02/21/17 15:37 > - Psychiatric Psychiatric: Present: behavioral changes, depression, difficulty concentrating <Nuha Crow - 02/21/17 15:37> [facility] Patient Stated Medical History Seizures Yes: TODAY Other Infectious Yes Depression Yes Eating Disorder Yes: lack of eating since 09/2016 <Yaneli Springer - 02/21/17 16:48> Patient Stated Medical History Seizures Yes: TODAY Other Infectious Yes Depression Yes Eating Disorder Yes: lack of eating since 09/2016 <Nuha Crow 02/21/17 15:37> Surgical History: Unable to obtain due to patient status. Per , he is unaware of any prior surgeries. <Nuha Crow - 02/21/17 15:37> Family History: Father age 81 prostate cancer Sister brain cancer age 61 Mother living, no cancer history One brother living no cancer history Paternal uncle of bone cancer <Nuha Crow 02/21/17 15:37> Smoking status: Current every day smoker <Nuha Crow 02/21/17 15:37> Packs per day: 1 <Nuha Crow 02/21/17 15:37> Packs-years: 40 <Nuha Crow 02/21/17 15:37> Household members: spouse <Nuha Crow 02/21/17 15:37> Current occupational status: unemployed <Nuha Crow 02/21/17 15:37> Does patient use chewing tobacco?: No <Nuha Crow 02/21/17 15:37> Current residence: Detention <Nuha Crow 02/21/17 14:19> Medications Home Medications Medication Instructions Recorded Confirmed Type Acetaminophen 650 mg PO Q4H PRN 02/20/17 02/20/17 History Alum-Mag Hydroxide-Simeth Liq 30 ml PO Q2H PRN 02/20/17 02/20/17 History Benadryl 50 mg INJ Q8H PRN 02/20/17 02/20/17 History Haldol 5 mg INJ Q4H PRN 02/20/17 02/20/17 History Haldol 5 mg PO Q4H PRN 02/20/17 02/20/17 History LORazepam INJ 2 mg INJ Q4H PRN 02/20/17 02/20/17 History Lorazepam 2 mg PO Q4H PRN 02/20/17 02/20/17 History Milk of Magnesia 30 ml PO DAILY PRN 02/20/17 02/20/17 History Nicotine 1 patch TD DAILY 02/20/17 02/20/17 History Nicotine Gum 2 mg PO Q2H PRN 02/20/17 02/20/17 History Vistaril 50 mg PO Q8H PRN 02/20/17 02/20/17 History <GianPeteesteban Pelayo - 02/21/17 16:48> Allergies Allergy/AdvReac Type Severity Reaction Status Date / Time No Known Allergies Allergy Verified 02/20/17 11:56 <GianPeteesteban Pelayo - 02/21/17 16:48> Exam Vital signs: Temp Pulse Resp BP Pulse Ox 97.6 F 101 H 29 H 100/67 97 02/21/17 12:17 02/21/17 12:00 02/21/17 12:00 02/21/17 16:00 02/21/17 12:00 <GianPeteesteban Pelayo - 02/21/17 16:48> Temp Pulse Resp BP Pulse Ox 97.6 F 99 25 H 126/73 95 02/21/17 12:17 02/21/17 12:00 02/21/17 08:00 02/21/17 09:00 02/21/17 08:00 <Nuha Crow - 02/21/17 14:19> - Constitutional no acute distress, well nourished, well developed, cooperative <Nuha Crow - 02/21/17 15:37> - Routine HEENT Exam Head: Present: normocephalic. Absent: scalp tenderness, facial swelling < Nuha Crow - 02/21/17 15:37> Eye: Present: EOMI, normal accommodation, conjunctivae pink <Nuha Crow 02/21/17 15:37> ENT: Present: mucous membranes dry <Nuha Crow 02/21/17 15:37> Comments: Multiple caries, poor oral care <Nuha Crow 02/21/17 15:37> - Routine Chest/Breast/Axilla Exam Chest wall: Absent: tenderness <Nuha Crow 02/21/17 15:37> Axillae: Absent: lymphadenopathy, erythema <Nuha Crow [facility] 02/21/17 15:37> - Routine Respiratory Exam Present: decreased breath sounds. Absent: wheezes, crackles <Nuha Crow [facility] 02/21/17 15:37> - Routine Cardiovascular Exam Present: RRR <Nuha Crow [facility] 02/21/17 15:37> - Routine Abdominal Exam Present: soft, tenderness (mild tenderness with lower abdominal exam.), rebound. Absent: mass <Nuha Crow - 02/21/17 15:37> - Routine Extremities Exam Absent: no edema, tenderness <Nuha Crow [facility] 02/21/17 15:37> - Routine Skin Exam Present: dry, pallor, warm <Nuha Crow [facility] 02/21/17 15:37> - Routine Neurological Exam Present: alert, moving all extremities. Absent: nystagmus <Nuha Crow [facility] 02/21/17 15:37> - Routine Psychiatric Exam Present: normal affect, cooperative. Absent: normal thought process <Nuha Crow [facility] 02/21/17 15:37> Oncology Results - Labs CBC & Chem 7: 02/21/17 04:58 02/21/17 12:01 <GianPeteesteban - 02/21/17 16:48> Labs: Short CBC 02/21/17 Range/Units 04:58 WBC 8.0 D (4.5-11.0) T/MM3 Hgb 10.5 L (12-16) GM/DL Hct 35.1 L (36-46) % Plt Count 420 H (130-400) T/MM3 [facility] 02/21/17 02/21/17 04:58 12:01 Sodium 142 145 H Potassium 4.0 D 5.1 H D Chloride 104 111 H D Carbon Dioxide 25 21 L BUN 10.0 12.0 Creatinine 0.6 L 0.5 L Glucose 138 H 170 H Calcium 8.7 9.0 Liver Function 02/21/17 02/21/17 Range/Units 04:58 12:01 Total Bilirubin 0.30 0.40 (0.20-1.30) MG/DL AST 27 25 (14-36) U/L ALT 23 24 (9-52) U/L Alkaline Phosphatase 113 97 (38-126) U/L Albumin 3.5 3.2 L (3.5-5.0) G/DL <Yaneli Springer - 02/21/17 16:48> Short CBC 02/21/17 Range/Units 04:58 WBC 8.0 D (4.5-11.0) T/MM3 Hgb 10.5 L (12-16) GM/DL Hct 35.1 L (36-46) % Plt Count 420 H (130-400) T/MM3 BMP 02/21/17 02/21/17 04:58 12:01 Sodium 142 145 H Potassium 4.0 D 5.1 H D Chloride 104 111 H D Carbon Dioxide 25 21 L BUN 10.0 12.0 Creatinine 0.6 L 0.5 L Glucose 138 H 170 H Calcium 8.7 9.0 Liver Function 02/21/17 02/21/17 Range/Units 04:58 12:01 Total Bilirubin 0.30 0.40 (0.20-1.30) MG/DL AST 27 25 (14-36) U/L ALT 23 24 (9-52) U/L Alkaline Phosphatase 113 97 (38-126) U/L Albumin 3.5 3.2 L (3.5-5.0) G/DL <Nuha Crow - 02/21/17 14:19> - Imaging and Cardiology CT scan - abdomen Additional comments: CT chest abdomen pelvis report reviewed . Extensive pleural mass throughout the right chest. The appearance is most consistent with malignant mesothelioma with possible contralateral pulmonary metastases. The other differential considerations are pleural metastatic disease and invasive malignant thymoma. Recommend pleural biopsy. <Nuha Crow - 02/21/17 15:37> CT scan - head Additional comments: Intracranial metastases. <Nuha Crow - 02/21/17 15:37> Assessment and Plan (1) Pleural mass Current visit: Yes Status: Acute (2) Intracranial mass Current visit: Yes Status: Acute (3) Seizure Current visit: Yes Status: Acute (4) Anemia Current visit: Yes Status: Acute <Nuha Crow - 02/21/17 14:56> (1) Mass of right lung Current visit: Yes Status: Acute (2) Mass of right lung Current visit: Yes Status: Acute I have seen and examined the patient. I met the patient for almost an hour explaining to the him the result of the scans. I showed to the him the scan in the computer. Then we discussed diagnostic procedure and treatment options. I scheduled the patient for a CT guided biopsy on Friday. Then I will meet with the patient and her on Friday or Friday to discuss the plan of care based on the final diagnosis. This is most like a Mesothelioma <Yaneli Springer - 02/21/17 16:48> Sepsis Assessment - Evaluation Sepsis screening result: Severe Sepsis Risk <Nuha Crow Linda - 02/21/17 14:19> SIRS Criteria: none, WBC > or equal to 12,000, blood sugar >120 in non-diabetic <Giselle Crowamarjit Mckeon - 02/21/17 14:19> Severe Sepsis: none seen <Nuha Crow Linda - 02/21/17 14:19> - Focused Exam Vital Signs Temp Pulse Resp BP Pulse Ox 02/21/17 16:00 100/67 02/21/17 15:00 103/68 02/21/17 14:00 121/63 02/21/17 13:00 99/58 02/21/17 12:17 97.6 F 02/21/17 12:13 108/65 02/21/17 12:00 101 H 29 H 97 02/21/17 11:00 119/74 02/21/17 10:00 116/63 02/21/17 09:00 126/73 02/21/17 08:00 82 25 H 131/75 95 02/21/17 07:55 92 02/21/17 06:45 89 30 H 98 02/21/17 06:30 91 29 H 98 02/21/17 06:16 104 H 29 H 02/21/17 06:04 118/74 02/21/17 06:00 98 02/21/17 05:45 101 H 42 H 98 02/21/17 05:30 80 22 96 02/21/17 05:15 89 34 H 97 02/21/17 05:11 119/70 02/21/17 05:00 100 37 H 97 02/21/17 04:45 91 31 H 99 <BenPete nickersonesteban Pelayo - 02/21/17 16:48> Vital Signs Temp Pulse Resp BP Pulse Ox 06/02/17 12:17 97.6 F 02/21/17 12:00 99 02/21/17 09:00 126/73 02/21/17 08:00 82 25 H 131/75 95 02/21/17 07:55 92 02/21/17 06:45 89 30 H 98 02/21/17 06:30 91 29 H 98 02/21/17 06:16 104 H 29 H 02/21/17 06:04 118/74 02/21/17 06:00 98 02/21/17 05:45 101 H 42 H 98 02/21/17 05:30 80 22 96 02/21/17 05:15 89 34 H 97 02/21/17 05:11 119/70 02/21/17 05:00 100 37 H 97 02/21/17 04:45 91 31 H 99 02/21/17 04:30 84 44 H 97 02/21/17 04:15 87 38 H 98 02/21/17 04:00 89 107/57 02/21/17 03:45 98 F 86 36 H 98 02/21/17 03:30 87 32 H 97 02/21/17 03:15 84 34 H 95 02/21/17 03:00 116/73 02/21/17 02:45 81 25 H 96 02/21/17 02:30 80 22 96 02/21/17 02:15 82 33 H 95 <Nuha Crow - 02/21/17 14:19> Respiratory exam: Present: CTA bilaterally <Nuha Crow - 02/21/17 14:19> Cardiovascular exam: Present: RRR <Nuha Crow - 02/21/17 14:19>
[2017-02-21] MEDS ORDERED: HALOPERIDOL 5 MG/ML INJECTION IVP PRN (23:15)
[2017-02-22] MEDS: NS 1,000 ML IV SCH (03:14)
[2017-02-22] MEDS: SALINE FLUSH 10ml SYRINGE IV PRN ×4 (04:49→22:50)
[2017-02-22] MEDS: PHENYTOIN 100 MG/2 ML IVP SCH ×3 (10:10→20:52)
[2017-02-22] MEDS: PANTOPRAZOLE 40 MG INJECTION IVP SCH (10:10)
[2017-02-22] MEDS: NICOTINE 21 MG PATCH TD SCH (10:11)
[2017-02-22] MEDS: NICOTINE PATCH REMOVAL TD SCH (10:12)
[2017-02-22] MEDS: DEXAMETHASONE 4 MG/ML INJECTION IVP SCH ×5 (11:04→22:44)
--- NOTE | 2017-02-22 11:47 | Progress Note ---
Subjective: Pt is awake and conversant. No respiratory distress. No seizures since admission. Appears more pleasant and cooperative today. Objective Vital signs: Temp Pulse Resp BP Pulse Ox 97.5 F 102 H 18 109/78 99 02/22/17 08:00 02/22/17 08:00 02/22/17 08:00 02/22/17 08:00 02/22/17 08:00 Rhythm: Normal Sinus Rhythm Weight: 47.1 kg - Constitutional Present: no acute distress, thin, cachectic, cooperative - Routine HEENT Exam Head: Present: normocephalic Eye: Present: EOMI ENT: Present: mucous membranes moist - Routine Respiratory Exam Present: CTA bilaterally - Routine Cardiovascular Exam Present: RRR - Routine Abdominal Exam Present: soft, non tender - Routine Extremities Exam Absent: cyanosis, clubbing, edema - Routine Musculoskeletal Exam Musculoskeletal: no clubbing or cyanosis, moving extremities well - Routine Neurological Exam Present: alert - Routine Psychiatric Exam Present: cooperative Results - Labs CBC & Chem 7: 02/22/17 04:45 02/21/17 12:01 Labs: Short CBC 02/22/17 Range/Units 04:45 WBC 14.8 H D (4.5-11.0) T/MM3 Hgb 9.1 L D (12-16) GM/DL Hct 30.3 L D (36-46) % Plt Count 396 (130-400) T/MM3 BMP 02/21/17 12:01 Sodium 145 H Potassium 5.1 H D Chloride 111 H D Carbon Dioxide 21 L BUN 12.0 Creatinine 0.5 L Glucose 170 H Calcium 9.0 Liver Function 02/21/17 Range/Units 12:01 Total Bilirubin 0.40 (0.20-1.30) MG/DL AST 25 (14-36) U/L ALT 24 (9-52) U/L Alkaline Phosphatase 97 (38-126) U/L Albumin 3.2 L (3.5-5.0) G/DL Assessment and Plan Assessment and Plan: This is a patient that presented to us on 02/20 with new onset seizures and multiple brain lesions. Further exam showed multiple lung nodules suggesting of a primary tumor with brain mets. Pt was given Dexamethasone and loaded with Dilantin, with no further seizures. Pt has a 5 year H.O Psychiatric problems with psychosis. 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 Per my conversation with Oncology pt CT chest is suggestive of mesothelioma. Abdomen CT did not show source was not found to have a large mass to explain the lung/brain masses. Unknown histologic type. - No hyponatremia or hypercalcemia. - No respiratory distress. - Oncology saw pt yesterday and she will be having a CT guided biopsy on Friday. 2) H/O Psychosis for 5 years; not agitated today. - Pt is on PRN Haldol and PRN Ativan. - Behaviorally stable in the ICU. 3) Anemia, may consider working up later. 4) Hyperglycemia probably related to Steroids (IV). However wt loss of 50 pounds could be due to underlying malignancy +/- DM - HbA1c NORMAL. 5) Infection ? Pt had elevated lactic acid on admission which cleared later - this was most likely related to her seizure. - Pro-calcitonin was high and WBC was high on admission, WBC dropped yesterday and is up again on same range as on admisison. - Procalcitonin was not repeated. - No fever. PREVENTION PUD - PROTONIX IV DVT - SCD'S Will transfer to medical floor. Sepsis Assessment - Evaluation Sepsis screening result: No Definite Risk SIRS Criteria: none, WBC > or equal to 12,000, blood sugar >120 in non-diabetic Severe Sepsis: none seen - Focused Exam Vital Signs Temp Pulse Resp BP Pulse Ox 02/22/17 08:00 97.5 F 102 H 18 109/78 99 02/22/17 04:00 96.9 F 82 24 137/72 94 02/22/17 01:00 90 02/22/17 00:00 99.4 F 93 17 130/60 96 Respiratory exam: Present: CTA bilaterally Cardiovascular exam: Present: RRR Hospital Course Summary Disclaimer: The visit summary below is not to be considered part of the above Progress Note.
[2017-02-23] MEDS: DEXAMETHASONE 4 MG/ML INJECTION IVP SCH ×4 (04:21→21:44)
[2017-02-23] MEDS: NICOTINE PATCH REMOVAL TD SCH (08:48)
[2017-02-23] MEDS: NICOTINE 21 MG PATCH TD SCH (08:48)
[2017-02-23] MEDS: PANTOPRAZOLE 40 MG INJECTION IVP SCH (08:48)
[2017-02-23] MEDS: PHENYTOIN 100 MG/2 ML IVP SCH ×3 (08:51→21:44)
--- NOTE | 2017-02-23 12:15 | Progress Note ---
Subjective: Pt appears to be in NAD. She is up having lunch and has no complaints. Has had tachycardia on and off, earlier was tachycardic we removed her Nicotine and patch which appeared to help, now she is tacycardic again. Will place on telemetry to better address this. No new seizures. Objective Vital signs: Temp Pulse Resp BP Pulse Ox 96.7 F L 101 H 18 123/82 99 02/23/17 07:26 02/23/17 10:36 02/23/17 07:26 02/23/17 07:26 02/23/17 07:26 Rhythm: Sinus Tachycardia Weight: 50.9 kg - Constitutional Present: no acute distress, thin, cachectic, cooperative - Routine HEENT Exam Head: Present: normocephalic, atraumatic Eye: Present: EOMI, PERRL ENT: Present: mucous membranes moist - Routine Respiratory Exam Present: CTA bilaterally, distant breath sounds - Routine Cardiovascular Exam Present: RRR, no murmur, tachycardia. Absent: gallop - Routine Abdominal Exam Present: soft, non distended, non tender - Routine Extremities Exam Absent: cyanosis, clubbing, edema - Routine Neurological Exam Present: alert Results - Labs CBC & Chem 7: 02/23/17 09:50 02/23/17 09:50 Labs: Short CBC 02/23/17 Range/Units 09:50 WBC 15.4 H (4.5-11.0) T/MM3 Hgb 10.6 L D (12-16) GM/DL Hct 35.2 L D (36-46) % Plt Count 436 H (130-400) T/MM3 BMP 02/23/17 09:50 Sodium 139 D Potassium 3.3 L D Chloride 104 D Carbon Dioxide 25 BUN 11.0 Creatinine 0.6 L Glucose 160 H Calcium 8.6 Liver Function 02/23/17 Range/Units 09:50 Total Bilirubin 0.20 (0.20-1.30) MG/DL AST 23 (14-36) U/L ALT 24 (9-52) U/L Alkaline Phosphatase 100 (38-126) U/L Albumin 3.5 (3.5-5.0) G/DL Urine 02/22/17 Range/Units 20:00 Urine Color Yellow (YELLOW) Urine Clarity Clear Urine pH 6.0 (5.0-8.0) Ur Specific [place] 1.010 L (1.015-1.025) Urine Protein Negative (NEGATIVE) Urine Glucose (UA) Negative (NEGATIVE) Assessment and Plan Assessment and Plan: This is a patient that presented to us on 02/20 with new onset seizures and multiple brain lesions. Further exam showed multiple lung nodules suggesting of a primary tumor with brain mets. Pt was given Dexamethasone and loaded with Dilantin, with no further seizures. Pt has a 5 year H.O Psychiatric problems with psychosis. She appears very stable. Has been tachycardic so will monitor her closely as she is full code. 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 Pt will need a lung biopsy in the AM (Ct guided). told pt daughter to be available to sign consent. - No hyponatremia or hypercalcemia. - No respiratory distress. - Oncology saw pt on 02/21 and she will be having a CT guided biopsy tomorrow. - Remains comfortable. 2) H/O Psychosis for 5 years; not agitated today. - Pt is on PRN Haldol and PRN Ativan. - Behaviorally stable in the ICU. 3) Anemia, may consider working up later. 4) Hyperglycemia probably related to Steroids (IV). However wt loss of 50 pounds could be due to underlying malignancy +/- DM - HbA1c NORMAL. 5) Infection ? Pt had elevated lactic acid on admission which cleared later - this was most likely related to her seizure as it came down rapidly with no antibiotics. - WBC was high on admission, then it came down and it is back up again with L shift. - Pro-calcitonin on admission now it is lower. - No fever. - Continue close observation - pt is at risk of lung infection (post - obstructive PNA) or due to aspiration. PREVENTION PUD - PROTONIX IV DVT - SCD'S Sepsis Assessment - Evaluation Sepsis screening result: No Definite Risk SIRS Criteria: none, temperature > or equal to 100.4, WBC > or equal to 12,000, blood sugar >120 in non-diabetic Severe Sepsis: none seen - Focused Exam Vital Signs Temp Pulse Resp BP Pulse Ox 02/23/17 10:36 101 H 02/23/17 07:26 96.7 F L 117 H 18 123/82 99 02/23/17 04:00 96.5 F L 100 16 119/73 96 Respiratory exam: Present: CTA bilaterally Cardiovascular exam: Present: RRR Hospital Course Summary Disclaimer: The visit summary below is not to be considered part of the above Progress Note.
[2017-02-23] MEDS: NS 1,000 ML IV SCH (14:11)
[2017-02-24] MEDS: DEXAMETHASONE 4 MG/ML INJECTION IVP SCH ×4 (04:49→23:18)
[2017-02-24] MEDS: SALINE FLUSH 10ml SYRINGE IV PRN ×5 (04:50→23:17)
--- NOTE | 2017-02-24 08:35 | XRay Report ---
LOCATION OF DICTATION: [facility] EXAM: XR chest 2V HISTORY: Leukocytosis - left shift - tachycardia COMPARISON: Compared to the CT chest dated February 20, 2017. FINDINGS: There are numerous pulmonary nodules within the right lung. There is moderate pleural thickening/effusion again demonstrated. There is a 1.6 cm left retrocardiac pulmonary nodule demonstrated within the left lower lobe. There is no pneumothorax. Osseous structures are within normal limits. IMPRESSION: 1. Numerous pulmonary nodules throughout the right lung. Single left lower lobe pulmonary nodule measuring 1.6 cm. The appearance is not significantly changed from the prior CT chest chest dated three days earlier. .
[2017-02-24] MEDS: PANTOPRAZOLE 40 MG INJECTION IVP SCH (08:46)
[2017-02-24] MEDS: PHENYTOIN 100 MG/2 ML IVP SCH (08:47)
--- NOTE | 2017-02-24 11:39 | Progress Note ---
Subjective: Reva was resting in bed, but was awake. She was in no acute distress, but complains of weakness and not feeling well in general today. She' s NPO for CT-guided biopsy today. She denies headache or dizziness. No vision changes. She denies trouble breathing or chest pain. She denies abdominal or GI complaints. She hasn't had any further seizures (that she's aware of). <Eleanor Hurley 02/24/17 12:00> Objective Vital signs: Temp Pulse Resp BP Pulse Ox 96 F L 95 18 133/83 96 02/24/17 08:00 02/24/17 08:00 02/24/17 08:00 02/24/17 08:00 02/24/17 08:00 <Elmo Ayala 02/24/17 14:16> Temp Pulse Resp BP Pulse Ox 96 F L 95 18 133/83 96 02/24/17 08:00 02/24/17 08:00 02/24/17 08:00 02/24/17 08:00 02/24/17 08:00 <Eleanor Hurley 02/24/17 12:00> Rhythm: Sinus Tachycardia <Eleanor Hurley 02/24/17 12:00> Weight: 49.5 kg <Eleanor Hurley 02/24/17 12:00> - Constitutional Present: no acute distress, thin, cachectic, cooperative <Eleanor Hurley 02/05 12:00> - Routine HEENT Exam Head: Present: normocephalic <Eleanor Hurley 02/24/17 12:00> Eye: Present: PERRL. Absent: conjunctival icterus, scleral injection <Eleanor Hurley 02/24/17 12:00> ENT: Present: mucous membranes moist <Eleanor Hurley 02/24/17 12:00> - Routine Respiratory Exam Present: CTA bilaterally <Eleanor Hurley 02/24/17 12:00> - Routine Cardiovascular Exam Present: S1, S2 <Eleanor Hurley 02/24/17 12:00> - Routine Abdominal Exam Present: soft, normoactive bowel sounds, non distended. Absent: tenderness < XaviEleanor august Miley 02/24/17 12:00> - Routine Extremities Exam Present: no edema, pulses intact <Darren Hurleyjuan c Trent 02/24/17 12:00> - Routine Back/Spine/Pelvis Exam Back/Spine: Absent: erythema <Darren Hurleyjuan c [place] 02/24/17 12:00> - Routine Neurological Exam Present: alert, oriented X3, moving all extremities, normal tone, vision grossly intact, hearing grossly intact, normal speech. Absent: facial asymmetry <XaviDarrenEleanor D 02/24/17 12:00> - Routine Psychiatric Exam Absent: normal affect (flat affect) <XaviDarrenEleanor D 02/24/17 12:00> Results - Labs CBC & Chem 7: 02/24/17 04:15 02/24/17 04:15 <Elmo Ayala 02/24/17 14:16> Labs: Short CBC 02/24/17 Range/Units 04:15 WBC 13.6 H (4.5-11.0) T/MM3 Hgb 9.7 L (12-16) GM/DL Hct 31.9 L (36-46) % Plt Count 405 H (130-400) T/MM3 [facility] 02/24/17 04:15 Sodium 140 Potassium 3.6 Chloride 104 Carbon Dioxide 26 BUN 11.0 Creatinine 0.6 L Glucose 120 H Calcium 8.4 <Elmo Ayala - 02/24/17 14:16> Short CBC 02/24/17 Range/Units 04:15 WBC 13.6 H (4.5-11.0) T/MM3 Hgb 9.7 L (12-16) GM/DL Hct 31.9 L (36-46) % Plt Count 405 H (130-400) T/MM3 [facility] 02/24/17 04:15 Sodium 140 Potassium 3.6 Chloride 104 Carbon Dioxide 26 BUN 11.0 Creatinine 0.6 L Glucose 120 H Calcium 8.4 <XaviDarren augustjuan c [place] 02/24/17 12:00> Assessment and Plan (1) New onset seizure Current visit: Yes Status: Acute (2) Intracranial mass Current visit: Yes Status: Acute (3) Anemia Current visit: Yes Status: Acute (4) Mass of right lung Current visit: Yes Status: Acute (5) Psychosis Current visit: Yes Status: Acute (6) Hyperglycemia Current visit: Yes Status: Acute (7) Weight loss Current visit: Yes Status: Acute <Elmo Ayala - 02/24/17 14:16> (1) Mass of right lung Current visit: Yes Status: Acute (2) Intracranial mass Current visit: Yes Status: Acute (3) New onset seizure Current visit: Yes Status: Acute (4) Anemia Current visit: Yes Status: Acute (5) Hyperglycemia Current visit: Yes Status: Acute (6) Psychosis Current visit: Yes Status: Acute (7) Weight loss Current visit: Yes Status: Acute <Xavi,Eleanor D - 02/24/17 11:35> DVT Prophylaxis: SCD's <Eleanor Hurley - 02/24/17 12:00> GI Prophylaxis: Protonix <Eleanor Hurley - 02/24/17 12:00> Assessment and Plan: Have independently interviewed and examined pt. Chart reviewed. Case discussed with CM and my PASSENGER INTERLINE CLERK. Care plan developed with my supervision; agree with above. Rough day, feels cloudy. Low back painful-hard to find comfortable position; feels restless. No nausea. Notes some increase in hunger, but not able to take much in today as NPO for CT Bx this afternoon. Breathing stable. No f/c. Lungs: decreased bilaterally, no distress on RA. CV: regular AB: soft nd,nt BS decreased. EXT: no edema, SCD in place MSE: awake alert; thought process with delay. Plan: Continue IV decadron. Will change Dilantin to oral. Nursing to check bladder scan due to recent urinary retention. Heating pad as needed for pain. Bx anticipated this afternoon-will help with definitive treatment. Monitor lab. Case discussed with pt's . Time spent with pt care 25 minutes. <Elmo Ayala - 02/24/17 14:15> 1. Lung nodules and intracranial metastases -CT guided bx planned today -Dr. Springer has already visited with the patient and her ; suspects mesothelioma -continue dexamethasone, taper per oncology 2. New onset sz, secondary to #1 -continue seizure precautions -continue Dilantin 3. Anemia, microcytic -could be secondary to #1 -with recent wt loss of 50 lbs could consider iron studies, could also be done outpt -may want to defer to oncology - additional testing may be warranted 4. Leukocytosis, thrombocytosis -leukocytosis at least partially due to steroids -infection not highly suspected -procalcitonin decreased from 2.16 to 1.49. Lactate trended down. 5. Electrolyte disturbances -hyperkalemia on 02/21, hypokalemia on 02/23, normal on 02/24 -hypernatremia on 02/21, normal on 02/24 A/P discussed with Dr. Ayala <Eleanor Hurley 02/24/17 12:00> Sepsis Assessment - Evaluation Sepsis screening result: No Definite Risk <Eleanor Hurley 02/24/17 12:00> SIRS Criteria: none, temperature > or equal to 100.4, WBC > or equal to 12,000, blood sugar >120 in non-diabetic <Eleanor Hurley 02/24/17 12:00> Severe Sepsis: none seen <Eleanor Hurley 02/24/17 12:00> - Focused Exam Vital Signs Temp Pulse Resp BP Pulse Ox 02/24/17 08:00 96 F L 95 18 133/83 96 02/24/17 04:00 97.6 F 92 20 134/87 97 <Elmo Ayala 02/24/17 14:16> Vital Signs Temp Pulse Resp BP Pulse Ox 02/24/17 08:00 96 F L 95 18 133/83 96 02/24/17 04:00 97.6 F 92 20 134/87 97 02/24/17 00:00 98.3 F 93 20 111/67 96 <Eleanor Hurley 02/24/17 12:00> Respiratory exam: Present: CTA bilaterally <Eleanor Hurley 02/24/17 12:00> Cardiovascular exam: Present: RRR <Eleanor Hurley 02/24/17 12:00> Hospital Course Summary Disclaimer: The visit summary below is not to be considered part of the above Progress Note. <Elmo Ayala 02/24/17 14:16> The visit summary below is not to be considered part of the above Progress Note. <Eleanor Hurley 02/24/17 12:00> Hospital Course: ADMIT 02/20/17 This is a patient that presents with new onset seizures and multiple brain lesions. The initial report states this could be neoplastic or infectious. Pt has a 5 year H.O Psychiatric problems with psychosis. It would be very atypical to develop Schizophrenia at this age. Other problems including auto-immune dissorders, endocrine dissorders, nutritional deficiencies are possible. At this time will focus on possibility of a metastatic process with/without infection. Possible source of infection could be lungs (afer a seizure - aspiration) but pt is pretty much asymptomatic. H.O Heavy tobacco abuse favor a tumor, with lung cancer being a likely cause. Daughter states pt has NO KNOWN H.O TB, HIV, or cancer. CT report Impression: Areas of vasogenic edema in the left frontal and right parietal lobes with associated rounded higher attenuation nodules raising strong suspicion for metastatic disease. Intracranial infection is also within the differential diagnosis. Hemorrhagic contusions are felt to be less likely given the reported absence of head trauma. Recommend contrast enhanced MRI for further evaluation. Differential diagnosis 1) New onset seizures, associated with multiple brain lesions. Pt was loaded with Dilantin - will continue at 100mg PO TID. a) Metastatic lesions from ? lung ? breast ? Other solid organs ? No hypercalcemia. b) Infection (With no known source at this time). No suggestion of emboli to the extremities to suspect endocarditis. Work up I have started workup as follows - will repeat Lactic acid if it is lower this could be related to seizure. If it is higher or the same this could be due to infection. Will check CT brain with contrast, CT Chest/Abdomen and Pelvis. This would assist in pointing a primary source of tumor (lungs, liver, pancreas, kindeys, etc) or an occult infection (liver abscess, diverticular abscess, etc). Will readdress once testing is complete. Pt was cultured anticipating the need of antibiotics. May need to consult oncology in the AM. 2) H/O Psychosis for 5 years. - May consult psychiatry in the AM. If initial workup favors infection will probably need ID to advise, and will check HIV, and for other processes ( i.e - if lungs - nocardia coverage would be needed). 3) Anemia, will workup electively. 4) Hyperglycemia. - Check HbA1c - Could be related to steroids. - Will do accuchecks and cover with insulin as needed. 02/21/17 1) New onset seizures, associated with multiple brain lesions, probably due to a primary lung tumor. Abdomen was not found to have a large mass to explain the lung masses. Probably stage IV lung cancer. -No hyponatremia or hypercalcemia. 2) H/O Psychosis for 5 years; not agitated today. 3) Anemia, will workup electively. 4) Hyperglycemia probably related to Steroids (IV). - Check HbA1c 5) Pt had elevated lactic acid on admission which cleared later - this was most likely related to her seizure. Pro-calcitonin was high and WBC was high but WBC is normal today and pt is not on antibiotics and appears to be stable. Plan - await for heme/onc advise. Speech Therapy evaluation to resume PO. 02/22/17: Consult by Dr. Springer I have seen and examined the patient. I met the patient for almost an hour explaining to the him the result of the scans. I showed to the him the scan in the computer. Then we discussed diagnostic procedure and treatment options. I scheduled the patient for a CT guided biopsy on Friday. Then I will meet with the patient and her on Friday or Friday to discuss the plan of care based on the final diagnosis. This is most like a Mesothelioma 02/22/17 1) MULTIPLE LUNG NODULES - PROBABLY LUNG CANCER WITH BRAIN METS, presenting with new onset seizures. Per my conversation with Oncology pt CT chest is suggestive of mesothelioma. Abdomen CT did not show source was not found to have a large mass to explain the lung/brain masses. Unknown histologic type. - No hyponatremia or hypercalcemia. - No respiratory distress. - Oncology saw pt yesterday and she will be having a CT guided biopsy on Friday. 2) H/O Psychosis for 5 years; not agitated today. - Pt is on PRN Haldol and PRN Ativan. - Behaviorally stable in the ICU. 3) Anemia, may consider working up later. 4) Hyperglycemia probably related to Steroids (IV). However wt loss of 50 pounds could be due to underlying malignancy +/- DM - HbA1c NORMAL. 5) Infection ? Pt had elevated lactic acid on admission which cleared later - this was most likely related to her seizure. - Pro-calcitonin was high and WBC was high on admission, WBC dropped yesterday and is up again on same range as on admisison. - Procalcitonin was not repeated. - No fever. 02/23/17 1) MULTIPLE LUNG NODULES - PROBABLY LUNG CANCER WITH BRAIN METS, presenting with new onset seizures. Pt will need a lung biopsy in the AM (Ct guided). told pt daughter to be available to sign consent. - No hyponatremia or hypercalcemia. - No respiratory distress. - Oncology saw pt on 02/21 and she will be having a CT guided biopsy tomorrow. - Remains comfortable. 2) H/O Psychosis for 5 years; not agitated today. - Pt is on PRN Haldol and PRN Ativan. - Behaviorally stable in the ICU. 3) Anemia, may consider working up later. 4) Hyperglycemia probably related to Steroids (IV). However wt loss of 50 pounds could be due to underlying malignancy +/- DM - HbA1c NORMAL. 5) Infection ? Pt had elevated lactic acid on admission which cleared later - this was most likely related to her seizure as it came down rapidly with no antibiotics. - WBC was high on admission, then it came down and it is back up again with L shift. - Pro-calcitonin on admission now it is lower. - No fever. - Continue close observation - pt is at risk of lung infection (post - obstructive PNA) or due to aspiration. 02/24/17 1. Lung nodules and intracranial metastases -CT guided bx planned today -Dr. Springer has already visited with the patient and her ; suspects mesothelioma -continue dexamethasone, taper per oncology 2. New onset sz, secondary to #1 -continue seizure precautions -continue Dilantin 3. Anemia, microcytic -could be secondary to #1 -with recent wt loss of 50 lbs could consider iron studies, could also be done outpt -may want to defer to oncology - additional testing may be warranted 4. Leukocytosis, thrombocytosis -leukocytosis at least partially due to steroids -infection not highly suspected -procalcitonin decreased from 2.16 to 1.49. Lactate trended down. 5. Electrolyte disturbances -hyperkalemia on 02/21, hypokalemia on 02/23, normal on 02/24 -hypernatremia on 02/21, normal on 02/24 <Eleanor Hurley - 02/24/17 12:00>
[2017-02-24] MEDS ORDERED: SALINE FLUSH 10ml SYRINGE ONE (14:43)
--- NOTE | 2017-02-24 16:02 | CT Scan Report ---
EXAM: CT biopsy lung RT LOCATION OF DICTATION: [place] HISTORY: Lung mass COMPARISON: No prior studies available for comparison. Technique/findings: After obtaining informed consent and brief history, the patient was positioned supine on the CT table. The right upper ventral chest was prepped and draped in normal sterile fashion. 1% lidocaine was used for local anesthesia. A small dermatotomy was made. Under CT guidance a total of two 18-gauge core biopsy samples were obtained of the pleural-based nodule within the anterior right upper lobe. A blood patch was subsequent injected and the trocar needle was removed. A repeat scan was obtained. No visible pneumothorax or hemothorax was identified. The patient tolerated the procedure and left the department in good condition. IMPRESSION: 1. Successful CT-guided biopsy of pleural-based nodule within the right upper lobe. Pathologic interpretation is pending. .
[2017-02-24] MEDS: PHENYTOIN 100 MG CAPSULE PO SCH (17:33)
--- NOTE | 2017-02-24 18:48 | Progress Note ---
Oncology Subjective Had biopsy today. No shortness of breath after. ROS Gen: Fatigue, Weight loss Eyes: No Pain No blurriness ENT: No nosebleeds, No sore throat. Mild difficulty swallowing Lungs: No chest pain. No SOA. Abd: No N/V/ No diarrhea. olivo Neuro: No headache. Weakness Skin. No rash or lesion Lymph: no swollen nodes. Heme: No bruising or bleeding Exam Vital signs: Temp Pulse Resp BP Pulse Ox 96.1 F L 93 18 132/70 99 02/24/17 15:45 02/24/17 16:45 02/24/17 16:45 02/24/17 16:45 02/24/17 16:45 - Constitutional no acute distress, thin - Routine HEENT Exam Head: Present: normocephalic, atraumatic Eye: Present: EOMI, PERRL, conjunctivae pink ENT: Present: mucous membranes moist, oropharynx clear - Routine Neck Exam Absent: lymphadenopathy, tenderness - Routine Chest/Breast/Axilla Exam Axillae: Absent: lymphadenopathy - Routine Respiratory Exam Present: CTA bilaterally. Absent: accessory muscle use - Routine Cardiovascular Exam Present: RRR, no murmur - Routine Abdominal Exam Present: soft, tenderness (Diffusely). Absent: organomegaly - Routine Exam Comments: Olivo in place - Routine Skin Exam Present: dry, warm - Routine Neurological Exam Present: alert, CN II-XII intact - Routine Psychiatric Exam Present: normal affect Oncology Results - Labs CBC & Chem 7: 02/24/17 04:15 02/24/17 04:15 Labs: Short CBC 02/24/17 Range/Units 04:15 WBC 13.6 H (4.5-11.0) T/MM3 Hgb 9.7 L (12-16) GM/DL Hct 31.9 L (36-46) % Plt Count 405 H (130-400) T/MM3 BMP 02/24/17 04:15 Sodium 140 Potassium 3.6 Chloride 104 Carbon Dioxide 26 BUN 11.0 Creatinine 0.6 L Glucose 120 H Calcium 8.4 Progress Note-A&P (1) Intracranial mass Start date: 02/21/17 Problem details: Found on CT Status: Acute Current Visit: Yes (2) New onset seizure Status: Acute Current Visit: Yes (3) Seizure Status: Acute Assessment and plan: Abnormal CT Head with biopsy of lung mass done 0on 02/24/17 Current Visit: Yes (4) Pleural mass Start date: 02/28/17 Status: Acute Assessment and plan: Found on CT Biopsy today. Current Visit: Yes (5) Anemia Status: Acute Current Visit: Yes (6) Mass of right lung Status: Acute Current Visit: Yes (7) Mass of right lung Status: Acute Current Visit: Yes (8) Hyperglycemia Status: Acute Current Visit: Yes (9) Weight loss Status: Acute Current Visit: Yes - Time Spent With Patient Total time spent is greater than 50% in coordination of care (as documented) at patient's floor/unit and/or counseling patient: 25 - 35 minutes Sepsis Assessment - Evaluation Sepsis screening result: No Definite Risk SIRS Criteria: none, temperature > or equal to 100.4, WBC > or equal to 12,000, blood sugar >120 in non-diabetic Severe Sepsis: none seen - Focused Exam Vital Signs Temp Pulse Resp BP Pulse Ox 02/24/17 16:45 93 18 132/70 99 02/24/17 16:30 94 18 133/76 100 02/24/17 16:15 92 18 143/86 H 99 02/24/17 16:00 84 18 133/70 98 02/24/17 15:45 96.1 F L 85 18 132/75 97 02/24/17 08:00 96 F L 95 18 133/83 96 Respiratory exam: Present: CTA bilaterally Cardiovascular exam: Present: RRR
[2017-02-25] MEDS: SALINE FLUSH 10ml SYRINGE IV PRN (04:35)
[2017-02-25] MEDS: DEXAMETHASONE 4 MG/ML INJECTION IVP SCH ×4 (04:35→22:05)
[2017-02-25] MEDS: IPRATROPIUM/ALBUTEROL 2.5mg-0.5mg/3ml NEB IH SCH ×10 (08:55→18:45)
[2017-02-25] MEDS: PHENYTOIN 100 MG CAPSULE PO SCH ×2 (09:30→14:22)
[2017-02-25] MEDS: PANTOPRAZOLE 40 MG INJECTION IVP SCH (09:30)
--- NOTE | 2017-02-25 12:20 | Progress Note ---
Subjective: I watched Cheryl walk down the hallway with PT - she had a slow but steady gait. Afterwards, I saw her resting in bed. She states the biopsy site to her right anterior chest is very sore. She denies any shortness of breath or pain with inspiration. She denies nausea or abdominal pain. No dizziness, just ongoing generalized weakness. <Eleanor Hurley 02/25/17 12:36> Objective Vital signs: Temp Pulse Resp BP Pulse Ox 96.8 F 97 17 111/71 96 02/25/17 12:00 02/25/17 16:00 02/25/17 16:00 02/25/17 16:00 02/25/17 16:00 <Elmo Ayala - 02/25/17 17:16> Temp Pulse Resp BP Pulse Ox 96.1 F L 100 18 116/68 97 02/25/17 08:00 02/25/17 08:00 02/25/17 08:00 02/25/17 04:25 02/25/17 08:00 <Eleanor Hurley 02/25/17 12:36> Weight: 46.7 kg <Eleanor Hurley 02/25/17 12:36> - Constitutional Present: no acute distress, thin <Eleanor Hurley 02/25/17 12:36> - Routine HEENT Exam Eye: Present: PERRL <Eleanor Hurley 02/25/17 12:36> - Routine Respiratory Exam Present: CTA bilaterally <Eleanor Hurley 02/25/17 12:36> Comments: biopsy site to right anterior chest is healing well - no erythema, swelling or drainage <Eleanor Hurley 02/25/17 12:36> - Routine Cardiovascular Exam Present: RRR, S1, S2 <Eleanor Hurley 02/25/17 12:36> - Routine Abdominal Exam Present: soft, normoactive bowel sounds, non distended, non tender <Eleanor Hurley 02/25/17 12:36> - Routine Extremities Exam Present: full ROM <Eleanor Hurley 02/25/17 12:36> - Routine Skin Exam Present: intact, dry <Eleanor Hurley 02/25/17 12:36> - Routine Neurological Exam Present: alert, oriented X3 <XaviDarrenEleanor D - 02/25/17 12:36> - Routine Psychiatric Exam Present: normal affect (slightly flat affect) <XaviDarrenEleanor D - 02/25/17 12:36 > Results - Labs CBC & Chem 7: 02/25/17 04:34 02/25/17 04:34 <Elmo Ayala - 02/25/17 17:16> Labs: Short CBC 02/25/17 Range/Units 04:34 WBC 16.4 H (4.5-11.0) T/MM3 Hgb 10.1 L (12-16) GM/DL Hct 32.8 L (36-46) % Plt Count 411 H (130-400) T/MM3 [facility] 02/25/17 04:34 Sodium 138 Potassium 3.6 Chloride 100 Carbon Dioxide 27 BUN 12.0 Creatinine 0.5 L Glucose 177 H Calcium 8.6 <Elmo Ayala - 02/25/17 17:16> Short CBC 02/25/17 Range/Units 04:34 WBC 16.4 H (4.5-11.0) T/MM3 Hgb 10.1 L (12-16) GM/DL Hct 32.8 L (36-46) % Plt Count 411 H (130-400) T/MM3 [facility] 02/25/17 04:34 Sodium 138 Potassium 3.6 Chloride 100 Carbon Dioxide 27 BUN 12.0 Creatinine 0.5 L Glucose 177 H Calcium 8.6 <Eleanor Hurley - 02/25/17 12:36> Assessment and Plan (1) New onset seizure Current visit: Yes Status: Acute (2) Intracranial mass Problem details: Found on CT Current visit: Yes Status: Acute (3) Anemia Current visit: Yes Status: Acute (4) Mass of right lung Current visit: Yes Status: Acute (5) Psychosis Current visit: Yes Status: Acute (6) Hyperglycemia Current visit: Yes Status: Acute (7) Weight loss Current visit: Yes Status: Acute (8) Urinary retention Current visit: Yes Status: Acute <Elmo Ayala - 02/25/17 17:16> (1) Mass of right lung Current visit: Yes Status: Acute (2) Intracranial mass Problem details: Found on CT Current visit: Yes Status: Acute (3) New onset seizure Current visit: Yes Status: Acute (4) Anemia Current visit: Yes Status: Acute (5) Hyperglycemia Current visit: Yes Status: Acute (6) Weight loss Current visit: Yes Status: Acute (7) Psychosis Current visit: Yes Status: Acute (8) Urinary retention Current visit: Yes Status: Acute Quiroz inserted on 02/24/17 <Eleanor Hurley - 02/25/17 12:17> Assessment and Plan: Have independently interviewed and examined pt. Chart reviewed. Case discussed with my PULVERIZER. Care plan developed with my supervision; agree with above. Doing okay today. Did work with therapy and did alright but balance and endurance problems noted. Eating better (likely steroid effect). Not feeling pain with swallowing. Does not pain at CT Bx site. Breathing stable-not having increased congestion or cough. Lungs: decreased, no distress CV: regular AB: soft nt/nd +BS EXT: no edema MSE: awake alert. Appears irritable. Plan: Continue Decadron to help decrease tumor edema. Will change Dilatin to 300mg at night. Encourage activities to help increase strength, endurance and balance. Continue Bladder retraining due to urinary retention. Bx results pending. <Elmo Ayala - 02/25/17 17:15> Lung nodules and intracranial metastases -CT guided biopsy of lung nodule on 02/24/17 -path pending -will need to discuss plan with oncology Urinary retention -Quiroz inserted on 02/24/17 with 1L of retention New onset sz -Dilantin changed to PO on 02/24/17 Encephalopathy, improving -usually A&Ox3, occasional confusion noted Generalized debility -continue PT/OT - qualifies for IP therapy d/t decreased balance/endurance CBC abnormalities - continue to monitor -Anemia (mild) -Leukocytosis (steroid effect) -Thrombocytosis <Eleanor Hurley - 02/25/17 12:36> Sepsis Assessment - Evaluation Sepsis screening result: No Definite Risk <Eleanor Hurley - 02/25/17 12:36> SIRS Criteria: none, temperature > or equal to 100.4, WBC > or equal to 12,000, blood sugar >120 in non-diabetic <Eleanor Hurley - 02/25/17 12:36> Severe Sepsis: none seen <Eleanor Hurley - 02/25/17 12:36> - Focused Exam Vital Signs Temp Pulse Resp BP Pulse Ox 02/25/17 16:00 97 17 111/71 96 02/25/17 12:00 96.8 F 95 16 136/80 98 02/25/17 08:00 96.1 F L 92 18 97 <Elmo Ayala - 02/25/17 17:16> Vital Signs Temp Pulse Resp BP Pulse Ox 02/25/17 08:00 96.1 F L 92 18 97 02/25/17 04:25 95.7 F L 99 20 116/68 02/25/17 00:20 96.5 F L 74 20 112/50 96 <Eleanor Hurley - 02/25/17 12:36> Respiratory exam: Present: CTA bilaterally <Eleanor Hurley - 02/25/17 12:36> Cardiovascular exam: Present: RRR <Eleanor Hurley - 02/25/17 12:36> Hospital Course Summary Disclaimer: The visit summary below is not to be considered part of the above Progress Note. <Elmo Ayala - 02/25/17 17:16> The visit summary below is not to be considered part of the above Progress Note. <Eleanor Hurley - 02/25/17 12:36> Hospital Course: ADMIT 02/20/17 This is a patient that presents with new onset seizures and multiple brain lesions. The initial report states this could be neoplastic or infectious. Pt has a 5 year H.O Psychiatric problems with psychosis. It would be very atypical to develop Schizophrenia at this age. Other problems including auto-immune dissorders, endocrine dissorders, nutritional deficiencies are possible. At this time will focus on possibility of a metastatic process with/without infection. Possible source of infection could be lungs (afer a seizure - aspiration) but pt is pretty much asymptomatic. H.O Heavy tobacco abuse favor a tumor, with lung cancer being a likely cause. Daughter states pt has NO KNOWN H.O TB, HIV, or cancer. CT report Impression: Areas of vasogenic edema in the left frontal and right parietal lobes with associated rounded higher attenuation nodules raising strong suspicion for metastatic disease. Intracranial infection is also within the differential diagnosis. Hemorrhagic contusions are felt to be less likely given the reported absence of head trauma. Recommend contrast enhanced MRI for further evaluation. Differential diagnosis 1) New onset seizures, associated with multiple brain lesions. Pt was loaded with Dilantin - will continue at 100mg PO TID. a) Metastatic lesions from ? lung ? breast ? Other solid organs ? No hypercalcemia. b) Infection (With no known source at this time). No suggestion of emboli to the extremities to suspect endocarditis. Work up I have started workup as follows - will repeat Lactic acid if it is lower this could be related to seizure. If it is higher or the same this could be due to infection. Will check CT brain with contrast, CT Chest/Abdomen and Pelvis. This would assist in pointing a primary source of tumor (lungs, liver, pancreas, kindeys, etc) or an occult infection (liver abscess, diverticular abscess, etc). Will readdress once testing is complete. Pt was cultured anticipating the need of antibiotics. May need to consult oncology in the AM. 2) H/O Psychosis for 5 years. - May consult psychiatry in the AM. If initial workup favors infection will probably need ID to advise, and will check HIV, and for other processes ( i.e - if lungs - nocardia coverage would be needed). 3) Anemia, will workup electively. 4) Hyperglycemia. - Check HbA1c - Could be related to steroids. - Will do accuchecks and cover with insulin as needed. 02/21/17 1) New onset seizures, associated with multiple brain lesions, probably due to a primary lung tumor. Abdomen was not found to have a large mass to explain the lung masses. Probably stage IV lung cancer. -No hyponatremia or hypercalcemia. 2) H/O Psychosis for 5 years; not agitated today. 3) Anemia, will workup electively. 4) Hyperglycemia probably related to Steroids (IV). - Check HbA1c 5) Pt had elevated lactic acid on admission which cleared later - this was most likely related to her seizure. Pro-calcitonin was high and WBC was high but WBC is normal today and pt is not on antibiotics and appears to be stable. Plan - await for heme/onc advise. Speech Therapy evaluation to resume PO. 02/22/17: Consult by Dr. Springer I have seen and examined the patient. I met the patient for almost an hour explaining to the him the result of the scans. I showed to the him the scan in the computer. Then we discussed diagnostic procedure and treatment options. I scheduled the patient for a CT guided biopsy on Friday. Then I will meet with the patient and her on Friday or Friday to discuss the plan of care based on the final diagnosis. This is most like a Mesothelioma 02/22/17 1) MULTIPLE LUNG NODULES - PROBABLY LUNG CANCER WITH BRAIN METS, presenting with new onset seizures. Per my conversation with Oncology pt CT chest is suggestive of mesothelioma. Abdomen CT did not show source was not found to have a large mass to explain the lung/brain masses. Unknown histologic type. - No hyponatremia or hypercalcemia. - No respiratory distress. - Oncology saw pt yesterday and she will be having a CT guided biopsy on Friday. 2) H/O Psychosis for 5 years; not agitated today. - Pt is on PRN Haldol and PRN Ativan. - Behaviorally stable in the ICU. 3) Anemia, may consider working up later. 4) Hyperglycemia probably related to Steroids (IV). However wt loss of 50 pounds could be due to underlying malignancy +/- DM - HbA1c NORMAL. 5) Infection ? Pt had elevated lactic acid on admission which cleared later - this was most likely related to her seizure. - Pro-calcitonin was high and WBC was high on admission, WBC dropped yesterday and is up again on same range as on admisison. - Procalcitonin was not repeated. - No fever. 02/23/17 1) MULTIPLE LUNG NODULES - PROBABLY LUNG CANCER WITH BRAIN METS, presenting with new onset seizures. Pt will need a lung biopsy in the AM (Ct guided). told pt daughter to be available to sign consent. - No hyponatremia or hypercalcemia. - No respiratory distress. - Oncology saw pt on 02/21 and she will be having a CT guided biopsy tomorrow. - Remains comfortable. 2) H/O Psychosis for 5 years; not agitated today. - Pt is on PRN Haldol and PRN Ativan. - Behaviorally stable in the ICU. 3) Anemia, may consider working up later. 4) Hyperglycemia probably related to Steroids (IV). However wt loss of 50 pounds could be due to underlying malignancy +/- DM - HbA1c NORMAL. 5) Infection ? Pt had elevated lactic acid on admission which cleared later - this was most likely related to her seizure as it came down rapidly with no antibiotics. - WBC was high on admission, then it came down and it is back up again with L shift. - Pro-calcitonin on admission now it is lower. - No fever. - Continue close observation - pt is at risk of lung infection (post - obstructive PNA) or due to aspiration. 02/24/17 1. Lung nodules and intracranial metastases -CT guided bx planned today -Dr. Springer has already visited with the patient and her ; suspects mesothelioma -continue dexamethasone, taper per oncology 2. New onset sz, secondary to #1 -continue seizure precautions -continue Dilantin 3. Anemia, microcytic -could be secondary to #1 -with recent wt loss of 50 lbs could consider iron studies, could also be done outpt -may want to defer to oncology - additional testing may be warranted 4. Leukocytosis, thrombocytosis -leukocytosis at least partially due to steroids -infection not highly suspected -procalcitonin decreased from 2.16 to 1.49. Lactate trended down. 5. Electrolyte disturbances -hyperkalemia on 02/21, hypokalemia on 02/23, normal on 02/24 -hypernatremia on 02/21, normal on 02/2402/25/17 12:31 Lung nodules and intracranial metastases -CT guided biopsy of lung nodule on 02/24/17 -path pending -will need to discuss plan with oncology Urinary retention -Quiroz inserted on 02/24/17 with 1L of retention New onset sz -Dilantin changed to PO on 02/24/17 Encephalopathy, improving -usually A&Ox3, occasional confusion noted CBC abnormalities - continue to monitor -Anemia (mild) -Leukocytosis (steroid effect) -Thrombocytosis <Eleanor Hurley - 02/25/17 12:36>
[2017-02-25] MEDS: PHENYTOIN 300 MG CAPSULE PO SCH (22:04)
[2017-02-26] MEDS: DEXAMETHASONE 4 MG/ML INJECTION IVP SCH ×2 (04:51→11:29)
[2017-02-26] MEDS: PANTOPRAZOLE 40 MG INJECTION IVP SCH (08:12)
--- NOTE | 2017-02-26 09:37 | Progress Note ---
<XaviEleanor Miley - Last Filed: 02/26/17 09:34> Subjective: Cheryl was awake but resting in bed. She hasn't done much today yet; hasn't been out of bed to walk but denies feeling dizzy. She states that the biopsy site is still very sore but she denies any shortness of breath. She denies abdominal pain or nausea. She asks for help to call her , and then was embarrassed because she couldn't recall his phone number. Objective Vital signs: Temp Pulse Resp BP Pulse Ox 96.9 F 99 17 125/77 98 02/26/17 07:22 02/26/17 08:00 02/26/17 07:22 02/26/17 07:22 02/26/17 07:22 Weight: 45.1 kg - Constitutional Present: no acute distress, thin - Routine HEENT Exam Eye: Absent: conjunctival icterus - Routine Respiratory Exam Present: CTA bilaterally Comments: biopsy site is healing well - Routine Cardiovascular Exam Present: S1, S2 - Routine Abdominal Exam Present: soft, normoactive bowel sounds, non distended, non tender - Routine Extremities Exam Present: no edema, normal capillary refill - Routine Skin Exam Present: intact, dry, pallor - Routine Neurological Exam Present: alert, oriented X3 - Routine Psychiatric Exam Present: normal thought process. Absent: normal affect (flat) Results - Labs CBC & Chem 7: 02/26/17 04:40 02/26/17 04:40 Labs: Short CBC 02/26/17 Range/Units 04:40 WBC 19.3 H (4.5-11.0) T/MM3 Hgb 10.5 L (12-16) GM/DL Hct 35.6 L (36-46) % Plt Count 449 H (130-400) T/MM3 BMP 02/26/17 04:40 Sodium 140 Potassium 4.2 Chloride 101 Carbon Dioxide 29 BUN 15.0 Creatinine 0.5 L Glucose 93 Calcium 9.2 Assessment and Plan (1) Mass of right lung Current visit: Yes Status: Acute (2) Intracranial mass Problem details: Found on CT Current visit: Yes Status: Acute (3) New onset seizure Current visit: Yes Status: Acute (4) Anemia Current visit: Yes Status: Acute (5) Hyperglycemia Current visit: Yes Status: Acute (6) Weight loss Current visit: Yes Status: Acute (7) Psychosis Current visit: Yes Status: Acute (8) Urinary retention Current visit: Yes Status: Acute Assessment and Plan: Lung nodules and intracranial metastases -CT guided biopsy of lung nodule on 02/24/17 -path pending -will need to discuss plan with oncology -continue PT/OT d/t generalized debility Urinary retention -Quiroz inserted on 02/24/17 with 1L of retention -continue bladder retraining Encephalopathy, improving -usually A&Ox3, occasional confusion noted CBC abnormalities - continue to monitor -Anemia (mild) - improved to 10.5 -Increasing Leukocytosis (steroid effect) -Thrombocytosis - increased to 449 New onset sz -Dilantin changed to PO on 02/24/17 -no sz since admit Sepsis Assessment - Evaluation Sepsis screening result: No Definite Risk SIRS Criteria: none, temperature > or equal to 100.4, WBC > or equal to 12,000, blood sugar >120 in non-diabetic Severe Sepsis: none seen - Focused Exam Vital Signs Temp Pulse Resp BP Pulse Ox 02/26/17 08:00 99 02/26/17 07:22 96.9 F 84 17 125/77 98 02/26/17 00:00 92 02/25/17 23:49 96.8 F 92 16 117/69 97 Respiratory exam: Present: CTA bilaterally Cardiovascular exam: Present: RRR Hospital Course Summary Disclaimer: The visit summary below is not to be considered part of the above Progress Note. Hospital Course: ADMIT 02/20/17 This is a patient that presents with new onset seizures and multiple brain lesions. The initial report states this could be neoplastic or infectious. Pt has a 5 year H.O Psychiatric problems with psychosis. It would be very atypical to develop Schizophrenia at this age. Other problems including auto-immune dissorders, endocrine dissorders, nutritional deficiencies are possible. At this time will focus on possibility of a metastatic process with/without infection. Possible source of infection could be lungs (afer a seizure - aspiration) but pt is pretty much asymptomatic. H.O Heavy tobacco abuse favor a tumor, with lung cancer being a likely cause. Daughter states pt has NO KNOWN H.O TB, HIV, or cancer. CT report Impression: Areas of vasogenic edema in the left frontal and right parietal lobes with associated rounded higher attenuation nodules raising strong suspicion for metastatic disease. Intracranial infection is also within the differential diagnosis. Hemorrhagic contusions are felt to be less likely given the reported absence of head trauma. Recommend contrast enhanced MRI for further evaluation. Differential diagnosis 1) New onset seizures, associated with multiple brain lesions. Pt was loaded with Dilantin - will continue at 100mg PO TID. a) Metastatic lesions from ? lung ? breast ? Other solid organs ? No hypercalcemia. b) Infection (With no known source at this time). No suggestion of emboli to the extremities to suspect endocarditis. Work up I have started workup as follows - will repeat Lactic acid if it is lower this could be related to seizure. If it is higher or the same this could be due to infection. Will check CT brain with contrast, CT Chest/Abdomen and Pelvis. This would assist in pointing a primary source of tumor (lungs, liver, pancreas, kindeys, etc) or an occult infection (liver abscess, diverticular abscess, etc). Will readdress once testing is complete. Pt was cultured anticipating the need of antibiotics. May need to consult oncology in the AM. 2) H/O Psychosis for 5 years. - May consult psychiatry in the AM. If initial workup favors infection will probably need ID to advise, and will check HIV, and for other processes ( i.e - if lungs - nocardia coverage would be needed). 3) Anemia, will workup electively. 4) Hyperglycemia. - Check HbA1c - Could be related to steroids. - Will do accuchecks and cover with insulin as needed. 02/21/17 1) New onset seizures, associated with multiple brain lesions, probably due to a primary lung tumor. Abdomen was not found to have a large mass to explain the lung masses. Probably stage IV lung cancer. -No hyponatremia or hypercalcemia. 2) H/O Psychosis for 5 years; not agitated today. 3) Anemia, will workup electively. 4) Hyperglycemia probably related to Steroids (IV). - Check HbA1c 5) Pt had elevated lactic acid on admission which cleared later - this was most likely related to her seizure. Pro-calcitonin was high and WBC was high but WBC is normal today and pt is not on antibiotics and appears to be stable. Plan - await for heme/onc advise. Speech Therapy evaluation to resume PO. 02/22/17: Consult by Dr. Springer I have seen and examined the patient. I met the patient for almost an hour explaining to the him the result of the scans. I showed to the him the scan in the computer. Then we discussed diagnostic procedure and treatment options. I scheduled the patient for a CT guided biopsy on Friday. Then I will meet with the patient and her on Friday or Friday to discuss the plan of care based on the final diagnosis. This is most like a Mesothelioma 02/22/17 1) MULTIPLE LUNG NODULES - PROBABLY LUNG CANCER WITH BRAIN METS, presenting with new onset seizures. Per my conversation with Oncology pt CT chest is suggestive of mesothelioma. Abdomen CT did not show source was not found to have a large mass to explain the lung/brain masses. Unknown histologic type. - No hyponatremia or hypercalcemia. - No respiratory distress. - Oncology saw pt yesterday and she will be having a CT guided biopsy on Friday. 2) H/O Psychosis for 5 years; not agitated today. - Pt is on PRN Haldol and PRN Ativan. - Behaviorally stable in the ICU. 3) Anemia, may consider working up later. 4) Hyperglycemia probably related to Steroids (IV). However wt loss of 50 pounds could be due to underlying malignancy +/- DM - HbA1c NORMAL. 5) Infection ? Pt had elevated lactic acid on admission which cleared later - this was most likely related to her seizure. - Pro-calcitonin was high and WBC was high on admission, WBC dropped yesterday and is up again on same range as on admisison. - Procalcitonin was not repeated. - No fever. 02/23/17 1) MULTIPLE LUNG NODULES - PROBABLY LUNG CANCER WITH BRAIN METS, presenting with new onset seizures. Pt will need a lung biopsy in the AM (Ct guided). told pt daughter to be available to sign consent. - No hyponatremia or hypercalcemia. - No respiratory distress. - Oncology saw pt on 02/21 and she will be having a CT guided biopsy tomorrow. - Remains comfortable. 2) H/O Psychosis for 5 years; not agitated today. - Pt is on PRN Haldol and PRN Ativan. - Behaviorally stable in the ICU. 3) Anemia, may consider working up later. 4) Hyperglycemia probably related to Steroids (IV). However wt loss of 50 pounds could be due to underlying malignancy +/- DM - HbA1c NORMAL. 5) Infection ? Pt had elevated lactic acid on admission which cleared later - this was most likely related to her seizure as it came down rapidly with no antibiotics. - WBC was high on admission, then it came down and it is back up again with L shift. - Pro-calcitonin on admission now it is lower. - No fever. - Continue close observation - pt is at risk of lung infection (post - obstructive PNA) or due to aspiration. 02/24/17 1. Lung nodules and intracranial metastases -CT guided bx planned today -Dr. Springer has already visited with the patient and her ; suspects mesothelioma -continue dexamethasone, taper per oncology 2. New onset sz, secondary to #1 -continue seizure precautions -continue Dilantin 3. Anemia, microcytic -could be secondary to #1 -with recent wt loss of 50 lbs could consider iron studies, could also be done outpt -may want to defer to oncology - additional testing may be warranted 4. Leukocytosis, thrombocytosis -leukocytosis at least partially due to steroids -infection not highly suspected -procalcitonin decreased from 2.16 to 1.49. Lactate trended down. 5. Electrolyte disturbances -hyperkalemia on 02/21, hypokalemia on 02/23, normal on 02/24 -hypernatremia on 02/21, normal on 02/2402/25/17 12:31 Lung nodules and intracranial metastases -CT guided biopsy of lung nodule on 02/24/17 -path pending -will need to discuss plan with oncology Urinary retention -Quiroz inserted on 02/24/17 with 1L of retention New onset sz -Dilantin changed to PO on 02/24/17 Encephalopathy, improving -usually A&Ox3, occasional confusion noted CBC abnormalities - continue to monitor -Anemia (mild) -Leukocytosis (steroid effect) -Thrombocytosis <Elmo Ayala - Last Filed: 02/26/17 20:00> Objective Vital signs: Temp Pulse Resp BP Pulse Ox 97.6 F 98 17 117/73 98 02/26/17 16:00 02/26/17 16:00 02/26/17 16:00 02/26/17 16:00 02/26/17 07:22 Results - Labs CBC & Chem 7: 02/26/17 04:40 02/26/17 04:40 Assessment and Plan (1) Adenocarcinoma of lung Current visit: Yes Status: Acute 02/26/17 19:47 Metastatic to brain (2) New onset seizure Current visit: Yes Status: Acute 02/26/17 19:47 Secondary to cerebral mets (3) Intracranial mass Problem details: Found on CT Current visit: Yes Status: Acute (4) Anemia Current visit: Yes Status: Acute (5) Mass of right lung Current visit: Yes Status: Acute (6) Psychosis Current visit: Yes Status: Acute (7) Hyperglycemia Current visit: Yes Status: Acute (8) Weight loss Current visit: Yes Status: Acute (9) Urinary retention Current visit: Yes Status: Acute DVT Prophylaxis: SCD's Assessment and Plan: Have independently interviewed and examined pt. Chart reviewed. Case discussed with Dr Springer and my AUCTION BLOCK CLERK. Care plan developed with my supervision; agree with above. Rough day-bad news about lung Bx. Does have adenocarcinoma. Dr Springer discussed palliative treatments with pt and her today. Pt not sure how to proceed. Not sure if she wants to pursue treatment. Notes discomfort to Bx site- not improving but not worsening. Breathing stable. Appetite with decrease, and not really liking the food her. Has been up some. Lungs: decreased, no distress CV: regular Ab: soft flat nt/nd +BS EXT: thin MSE: awake alert Plan: Continue Decadron due to brain mets-change to 4mg po TID as per Onc recommendations; does feel pt will need to be on this for the foreseeable future. Continue Dilantin for seizure control. Quiroz Removed - bladder scan due to potential of urinary retention. Encourage ambulation. Sepsis Assessment - Focused Exam Vital Signs Temp Pulse Resp BP 02/26/17 16:00 97.6 F 98 17 117/73 02/26/17 15:40 96 02/26/17 08:00 99 Hospital Course Summary Disclaimer: The visit summary below is not to be considered part of the above Progress Note.
--- NOTE | 2017-02-26 12:33 | Progress Note ---
Oncology Subjective She remains stable, up to the BR and chair. No more seizure, No headaches. Exam Vital signs: Temp Pulse Resp BP Pulse Ox 96.9 F 99 17 125/77 98 02/26/17 07:22 02/26/17 08:00 02/26/17 07:22 02/26/17 07:22 02/26/17 07:22 - Constitutional no acute distress, cooperative - Routine HEENT Exam Head: Present: normocephalic, atraumatic - Routine Neck Exam Present: supple - Routine Respiratory Exam Present: decreased breath sounds Comments: On the right side. - Routine Cardiovascular Exam Present: no murmur - Routine Abdominal Exam Present: soft, normoactive bowel sounds - Routine Neurological Exam Present: alert, oriented X3, normal reflexes Oncology Results - Labs CBC & Chem 7: 02/26/17 04:40 02/26/17 04:40 Labs: Short CBC 02/26/17 Range/Units 04:40 WBC 19.3 H (4.5-11.0) T/MM3 Hgb 10.5 L (12-16) GM/DL Hct 35.6 L (36-46) % Plt Count 449 H (130-400) T/MM3 BMP 02/26/17 04:40 Sodium 140 Potassium 4.2 Chloride 101 Carbon Dioxide 29 BUN 15.0 Creatinine 0.5 L Glucose 93 Calcium 9.2 Progress Note-A&P (1) Mass of right lung Status: Acute Current Visit: Yes (2) Mass of right lung Status: Acute Current Visit: Yes (3) Lung cancer, primary, with metastasis from lung to other site Status: Acute Assessment and plan: Stage IV NSCLC adenocarcinoma type with brain mets. I spent 30 min with the patient and her who joined us by phone. I explain to them the diagnosis, prognosis and treatment options. I explain to them this is not curable, but at this stage the treatment will be palliative to control symptoms and buy time (radiation and chemotherapy). The patient wants some time to think about the whole thing and get back to us. She stated that "I may not consider treatment", If she is going to have treatment, she would like to have treatment close to home in [place]. I will check EGFR, ALK, ROS1 and PDL-1 status of the cancer as patient may benefit from targeted therapy. Will keep her on decadron and anti-epileptic). Current Visit: Yes (4) Lung cancer, primary, with metastasis from lung to other site Status: Acute Current Visit: Yes - Time Spent With Patient Total time spent is greater than 50% in coordination of care (as documented) at patient's floor/unit and/or counseling patient: 25 - 35 minutes Sepsis Assessment - Evaluation Sepsis screening result: No Definite Risk SIRS Criteria: none, temperature > or equal to 100.4, WBC > or equal to 12,000, blood sugar >120 in non-diabetic Severe Sepsis: none seen - Focused Exam Vital Signs Temp Pulse Resp BP Pulse Ox 02/26/17 08:00 99 02/26/17 07:22 96.9 F 84 17 125/77 98 Respiratory exam: Present: CTA bilaterally Cardiovascular exam: Present: RRR
[2017-02-26] MEDS: DEXAMETHASONE 4 MG TABLET PO SCH ×2 (15:52→22:47)
[2017-02-26] MEDS: IPRATROPIUM/ALBUTEROL 2.5mg-0.5mg/3ml NEB IH SCH (16:00)
[2017-02-26] MEDS: PHENYTOIN 300 MG CAPSULE PO SCH (22:47)
[2017-02-27] MEDS: PANTOPRAZOLE 40 MG INJECTION IVP SCH (08:28)
[2017-02-27] MEDS: DEXAMETHASONE 4 MG TABLET PO SCH ×3 (08:28→23:38)
--- NOTE | 2017-02-27 11:26 | Progress Note ---
Oncology Subjective Reclining in hospital bed, alone in room. Oriented to person, place. States is March 2002; becomes frustrated with her inability to correctly give the date. She is more clear than she was at this providers last visit. Flat affect. Denies headache, vision changes. Denies shortness of air, cough, or chest pain. Denies nausea, vomiting. Reports intermittent abdominal pain, denies currently. Complains of decreased appetite. Reports urinary frequency, denies dysuria or hematuria. Normal BM today. General: No fever, no night sweats Eyes: No redness, no pain, no diplopia ENT: No mouth sores, no trouble swallowing Cardiac: No chest pain no palpitations Pulmonary: No cough, no shortness of breath, no wheezing Abdomen: + Intermittent abdominal pain, no nausea vomiting, no diarrhea or constipation : + frequency, denies dysuria, or hematuria Musculoskeletal: No arthritis, no myalgias Neurological: No headaches, no focal weakness Skin: No rash, no sores Psychiatric: No anxiety, no depression <Nuha Crow - 02/27/17 12:13> Exam Vital signs: Temp Pulse Resp BP Pulse Ox 98.3 F 101 H 18 126/77 95 02/27/17 15:37 02/27/17 15:37 02/27/17 15:37 02/27/17 15:37 02/27/17 15:37 <Linwood Landa - 02/27/17 18:07> Temp Pulse Resp BP Pulse Ox 96.2 F L 98 16 112/68 98 02/27/17 07:15 02/27/17 07:15 02/27/17 07:15 02/27/17 07:15 02/27/17 07:15 <Nuha Crow - 02/27/17 11:26> - Constitutional no acute distress, thin <Nuha Crow - 02/27/17 12:13> - Routine HEENT Exam Head: Present: normocephalic <Nuha Crow - 02/27/17 12:13> Eye: Present: EOMI. Absent: nystagmus <Nuha Crow - 02/27/17 12:13> ENT: Present: mucous membranes moist <Nuha Crow - 02/27/17 12:13> - Routine Neck Exam Present: supple. Absent: lymphadenopathy, tenderness <Nuha Crow L - 12:13> - Routine Chest/Breast/Axilla Exam Chest wall: Absent: tenderness <Nuha Crow - 02/27/17 12:13> Axillae: Absent: lymphadenopathy <Nuha Crow - 02/27/17 12:13> - Routine Respiratory Exam Present: decreased breath sounds (diminished breath sounds bilateral posterior throughout.). Absent: accessory muscle use, wheezes <Nuha Crow - 12:13> - Routine Cardiovascular Exam Present: RRR. Absent: murmur, tachycardia <Nuha Crow - 02/27/17 12:13> - Routine Abdominal Exam Present: soft. Absent: tenderness, organomegaly <Nuha Crow - 02/27/17 12 :13> Comments: No tenderness with exam <Nuha Crow - 02/27/17 12:13> - Routine Extremities Exam Absent: no edema, joint swelling <Nuha Crow - 02/27/17 12:13> - Routine Back/Spine/Pelvis Exam Back/Spine: Absent: vertebral tenderness <Nuha Crow - 02/27/17 12:13> - Routine Skin Exam Present: intact, dry, pallor, warm <Nuha Crow - 02/27/17 12:13> - Routine Neurological Exam Present: alert, moving all extremities, normal speech <Nuha Crow - 12:13> - Routine Psychiatric Exam Comments: Flat affect. Good eye contact. <Nuha Crow - 02/27/17 12:13> Oncology Results - Labs CBC & Chem 7: 02/27/17 04:17 02/26/17 04:40 <Linwood Landa - 02/27/17 18:07> Labs: Short CBC 02/27/17 Range/Units 04:17 WBC 18.3 H (4.5-11.0) T/MM3 Hgb 10.7 L (12-16) GM/DL Hct 35.1 L (36-46) % Plt Count 479 H (130-400) T/MM3 <Linwood Landa - 02/27/17 18:07> Short CBC 02/27/17 Range/Units 04:17 WBC 18.3 H (4.5-11.0) T/MM3 Hgb 10.7 L (12-16) GM/DL Hct 35.1 L (36-46) % Plt Count 479 H (130-400) T/MM3 <Nuha Crow L - 02/27/17 11:26> Progress Note-A&P (1) Intracranial mass Problem details: Found on CT Status: Acute Current Visit: Yes (2) New onset seizure Start date: 02/20/17 (related to brain metastasis) Status: Acute Assessment and plan: Patient presented to the emergency room with new onset seizure. CT scan showed brain metastasis. CT scan of the chest showed lung lesions. Biopsy shows non- small cell, adenocarcinoma of the lung. Patient willing to consider radiation therapy. Current Visit: Yes (3) Seizure Status: Acute Current Visit: Yes (4) Pleural mass Status: Acute Current Visit: Yes (5) Anemia Status: Acute Current Visit: Yes (6) Mass of right lung Status: Acute Current Visit: Yes (7) Mass of right lung Status: Acute Current Visit: Yes (8) Hyperglycemia Status: Acute Current Visit: Yes (9) Weight loss Status: Acute Current Visit: Yes <Linwood Landa - 02/27/17 18:07> (1) Lung cancer, primary, with metastasis from lung to other site Status: Acute Assessment and plan: Stage IV NSCLC adenocarcinoma type with brain mets. Dr. Springer has explained diagnosis, prognosis and treatment options. Informed is not curable, but at this stage the treatment will be palliative to control symptoms and buy time (radiation and chemotherapy). Has not made a decision on treatment yet, "my is going to call me later today and maybe will know after that." Again states if chooses treatment, she does not want treatment here in [place], she would like to have treatment close to home in [place]. EGFR,ALK, ROS1 and PDL-1 has been ordered, results pending. Asked patient if had any questions on diagnosis, chemotherapy or radiation. Replies no. 2. 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 Will continue Dilantin and Decadron. Current Visit: Yes <Nuha Crow L - 02/27/17 11:52> - Time Spent With Patient Total time spent is greater than 50% in coordination of care (as documented) at patient's floor/unit and/or counseling patient: <Linwood Landa - 02/27/17 18:07> Total time spent is greater than 50% in coordination of care (as documented) at patient's floor/unit and/or counseling patient: <Giselle Crowamarjit Mckeon - 02/27/17 11:26> 25 - 35 minutes <Nuha Crow - 02/27/17 12:13> Sepsis Assessment - Evaluation Sepsis screening result: No Definite Risk <Nuha Crow - 02/27/17 11:26> SIRS Criteria: none, temperature > or equal to 100.4, WBC > or equal to 12,000, blood sugar >120 in non-diabetic <Nuha Crow - 02/27/17 11:26> Severe Sepsis: none seen <Nuha Crow - 02/27/17 11:26> - Focused Exam Vital Signs Temp Pulse Resp BP Pulse Ox 02/27/17 15:37 98.3 F 101 H 18 126/77 95 02/27/17 07:15 96.2 F L 98 16 112/68 98 <Linwood Landa - 02/27/17 18:07> Vital Signs Temp Pulse Resp BP Pulse Ox 02/27/17 07:15 96.2 F L 98 16 112/68 98 02/27/17 00:00 97.2 F 90 18 122/69 97 <Nuha Crow - 02/27/17 11:26> Respiratory exam: Present: CTA bilaterally <Nuha Crow - 02/27/17 11:26> Cardiovascular exam: Present: RRR <Nuha Crow - 02/27/17 11:26> Capillary refill: < 2-3 Seconds <Nuha Crow - 02/27/17 11:26>
--- NOTE | 2017-02-27 18:02 | Progress Note ---
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 Feel rough. Notes she is urinating frequently-no pain or discomfort with urination. Not eating much as does not like how the food tastes-denies nausea or ab pain. Breathing well. No KABA or visual change. Strength improving slowly. Not having F/C. Objective Vital signs: Temp Pulse Resp BP Pulse Ox 98.3 F 101 H 18 126/77 95 02/27/17 15:37 02/27/17 15:37 02/27/17 15:37 02/27/17 15:37 02/27/17 15:37 Weight: 45.6 kg - Constitutional Present: no acute distress, well developed, thin - Routine HEENT Exam Head: Present: normocephalic, atraumatic Eye: Present: EOMI, PERRL, scleral injection. Absent: conjunctival icterus ENT: Present: mucous membranes moist (No thrush ) - Routine Respiratory Exam Present: decreased breath sounds. Absent: respiratory distress, wheezes, crackles - Routine Cardiovascular Exam Present: RRR - Routine Abdominal Exam Present: soft, normoactive bowel sounds, non distended, non tender - Routine Extremities Exam Present: no edema. Absent: cyanosis, clubbing, pallor - Routine Musculoskeletal Exam Musculoskeletal: no clubbing or cyanosis, normal strength - Routine Skin Exam Present: intact, warm. Absent: erythema, mottling - Routine Neurological Exam Present: alert, CN II-XII intact. Absent: motor deficit - Routine Psychiatric Exam Absent: normal affect (Flat) Results - Labs CBC & Chem 7: 02/27/17 04:17 02/26/17 04:40 Assessment and Plan (1) Adenocarcinoma of lung Current visit: Yes Status: Acute 02/26/17 19:47 Metastatic to brain (2) New onset seizure Current visit: Yes Status: Acute 02/26/17 19:47 Secondary to cerebral mets (3) Intracranial mass Problem details: Found on CT Current visit: Yes Status: Acute (4) Anemia Current visit: Yes Status: Acute (5) Mass of right lung Current visit: Yes Status: Acute (6) Psychosis Current visit: Yes Status: Acute (7) Hyperglycemia Current visit: Yes Status: Acute (8) Weight loss Current visit: Yes Status: Acute (9) Urinary retention Current visit: Yes Status: Acute Assessment and Plan: Continue oral Decadron at 4mg TID. Continue Dilantin 300mg qhs - have not seen further seizure activities. Will have nursing check bladder scan due to frequent urination and recent urinary retention. Anticipate outpatient chemo with Dr Landa in [place]. Likely discharge to home tomorrow. Nursing performed bladder scan - about 750cc urine in bladder. Pt without need/ sensation to urinate. Does not want Quiroz at this time. Will strait cath. Check post void bladder scans, strait cath as needed. Case discussed with Giselle Crow and CM. Time spent with pt care 25 minutes. Sepsis Assessment - Evaluation Sepsis screening result: No Definite Risk SIRS Criteria: none, temperature > or equal to 100.4, WBC > or equal to 12,000, blood sugar >120 in non-diabetic Severe Sepsis: none seen - Focused Exam Vital Signs Temp Pulse Resp BP Pulse Ox 02/27/17 15:37 98.3 F 101 H 18 126/77 95 02/27/17 07:15 96.2 F L 98 16 112/68 98 Respiratory exam: Present: CTA bilaterally Cardiovascular exam: Present: RRR Capillary refill: < 2-3 Seconds Hospital Course Summary Disclaimer: The visit summary below is not to be considered part of the above Progress Note. Hospital Course: ADMIT 02/20/17 This is a patient that presents with new onset seizures and multiple brain lesions. The initial report states this could be neoplastic or infectious. Pt has a 5 year H.O Psychiatric problems with psychosis. It would be very atypical to develop Schizophrenia at this age. Other problems including auto-immune dissorders, endocrine dissorders, nutritional deficiencies are possible. At this time will focus on possibility of a metastatic process with/without infection. Possible source of infection could be lungs (afer a seizure - aspiration) but pt is pretty much asymptomatic. H.O Heavy tobacco abuse favor a tumor, with lung cancer being a likely cause. Daughter states pt has NO KNOWN H.O TB, HIV, or cancer. CT report Impression: Areas of vasogenic edema in the left frontal and right parietal lobes with associated rounded higher attenuation nodules raising strong suspicion for metastatic disease. Intracranial infection is also within the differential diagnosis. Hemorrhagic contusions are felt to be less likely given the reported absence of head trauma. Recommend contrast enhanced MRI for further evaluation. Differential diagnosis 1) New onset seizures, associated with multiple brain lesions. Pt was loaded with Dilantin - will continue at 100mg PO TID. a) Metastatic lesions from ? lung ? breast ? Other solid organs ? No hypercalcemia. b) Infection (With no known source at this time). No suggestion of emboli to the extremities to suspect endocarditis. Work up I have started workup as follows - will repeat Lactic acid if it is lower this could be related to seizure. If it is higher or the same this could be due to infection. Will check CT brain with contrast, CT Chest/Abdomen and Pelvis. This would assist in pointing a primary source of tumor (lungs, liver, pancreas, kindeys, etc) or an occult infection (liver abscess, diverticular abscess, etc). Will readdress once testing is complete. Pt was cultured anticipating the need of antibiotics. May need to consult oncology in the AM. 2) H/O Psychosis for 5 years. - May consult psychiatry in the AM. If initial workup favors infection will probably need ID to advise, and will check HIV, and for other processes ( i.e - if lungs - nocardia coverage would be needed). 3) Anemia, will workup electively. 4) Hyperglycemia. - Check HbA1c - Could be related to steroids. - Will do accuchecks and cover with insulin as needed. 02/21/17 1) New onset seizures, associated with multiple brain lesions, probably due to a primary lung tumor. Abdomen was not found to have a large mass to explain the lung masses. Probably stage IV lung cancer. -No hyponatremia or hypercalcemia. 2) H/O Psychosis for 5 years; not agitated today. 3) Anemia, will workup electively. 4) Hyperglycemia probably related to Steroids (IV). - Check HbA1c 5) Pt had elevated lactic acid on admission which cleared later - this was most likely related to her seizure. Pro-calcitonin was high and WBC was high but WBC is normal today and pt is not on antibiotics and appears to be stable. Plan - await for heme/onc advise. Speech Therapy evaluation to resume PO. 02/22/17: Consult by Dr. Springer I have seen and examined the patient. I met the patient for almost an hour explaining to the him the result of the scans. I showed to the him the scan in the computer. Then we discussed diagnostic procedure and treatment options. I scheduled the patient for a CT guided biopsy on Friday. Then I will meet with the patient and her on Friday or Friday to discuss the plan of care based on the final diagnosis. This is most like a Mesothelioma 02/22/17 1) MULTIPLE LUNG NODULES - PROBABLY LUNG CANCER WITH BRAIN METS, presenting with new onset seizures. Per my conversation with Oncology pt CT chest is suggestive of mesothelioma. Abdomen CT did not show source was not found to have a large mass to explain the lung/brain masses. Unknown histologic type. - No hyponatremia or hypercalcemia. - No respiratory distress. - Oncology saw pt yesterday and she will be having a CT guided biopsy on Friday. 2) H/O Psychosis for 5 years; not agitated today. - Pt is on PRN Haldol and PRN Ativan. - Behaviorally stable in the ICU. 3) Anemia, may consider working up later. 4) Hyperglycemia probably related to Steroids (IV). However wt loss of 50 pounds could be due to underlying malignancy +/- DM - HbA1c NORMAL. 5) Infection ? Pt had elevated lactic acid on admission which cleared later - this was most likely related to her seizure. - Pro-calcitonin was high and WBC was high on admission, WBC dropped yesterday and is up again on same range as on admisison. - Procalcitonin was not repeated. - No fever. 02/23/17 1) MULTIPLE LUNG NODULES - PROBABLY LUNG CANCER WITH BRAIN METS, presenting with new onset seizures. Pt will need a lung biopsy in the AM (Ct guided). told pt daughter to be available to sign consent. - No hyponatremia or hypercalcemia. - No respiratory distress. - Oncology saw pt on 02/21 and she will be having a CT guided biopsy tomorrow. - Remains comfortable. 2) H/O Psychosis for 5 years; not agitated today. - Pt is on PRN Haldol and PRN Ativan. - Behaviorally stable in the ICU. 3) Anemia, may consider working up later. 4) Hyperglycemia probably related to Steroids (IV). However wt loss of 50 pounds could be due to underlying malignancy +/- DM - HbA1c NORMAL. 5) Infection ? Pt had elevated lactic acid on admission which cleared later - this was most likely related to her seizure as it came down rapidly with no antibiotics. - WBC was high on admission, then it came down and it is back up again with L shift. - Pro-calcitonin on admission now it is lower. - No fever. - Continue close observation - pt is at risk of lung infection (post - obstructive PNA) or due to aspiration. 02/24/17 1. Lung nodules and intracranial metastases -CT guided bx planned today -Dr. Springer has already visited with the patient and her ; suspects mesothelioma -continue dexamethasone, taper per oncology 2. New onset sz, secondary to #1 -continue seizure precautions -continue Dilantin 3. Anemia, microcytic -could be secondary to #1 -with recent wt loss of 50 lbs could consider iron studies, could also be done outpt -may want to defer to oncology - additional testing may be warranted 4. Leukocytosis, thrombocytosis -leukocytosis at least partially due to steroids -infection not highly suspected -procalcitonin decreased from 2.16 to 1.49. Lactate trended down. 5. Electrolyte disturbances -hyperkalemia on 02/21, hypokalemia on 02/23, normal on 02/24 -hypernatremia on 02/21, normal on 02/2402/25/17 Lung nodules and intracranial metastases -CT guided biopsy of lung nodule on 02/24/17 -path pending -will need to discuss plan with oncology Urinary retention -Quiroz inserted on 02/24/17 with 1L of retention New onset sz -Dilantin changed to PO on 02/24/17 Encephalopathy, improving -usually A&Ox3, occasional confusion noted CBC abnormalities - continue to monitor -Anemia (mild) -Leukocytosis (steroid effect) -Thrombocytosis 02/26 Continue Decadron due to brain mets-change to 4mg po TID as per Onc recommendations; does feel pt will need to be on this for the foreseeable future. Continue Dilantin for seizure control. Quiroz Removed - bladder scan due to potential of urinary retention. Encourage ambulation. 02/27 Feel rough. Notes she is urinating frequently-no pain or discomfort with urination. Not eating much as does not like how the food tastes-denies nausea or ab pain. Breathing well. No KABA or visual change. Strength improving slowly. Not having F/C. Continue oral Decadron at 4mg TID. Continue Dilantin 300mg qhs - have not seen further seizure activities. Will have nursing check bladder scan due to frequent urination and recent urinary retention. Anticipate outpatient chemo with Dr Landa in [place]. Likely discharge to home tomorrow. Nursing performed bladder scan - about 750cc urine in bladder. Pt without need/ sensation to urinate. Does not want Quiroz at this time. Will strait cath. Check post void bladder scans, strait cath as needed.
[2017-02-27] MEDS: PHENYTOIN 300 MG CAPSULE PO SCH (23:38)
[2017-02-28] MEDS: PANTOPRAZOLE 40 MG INJECTION IVP SCH (08:24)
[2017-02-28] MEDS: DEXAMETHASONE 4 MG TABLET PO SCH ×2 (08:25→15:05)
--- NOTE | 2017-02-28 13:59 | Discharge Summary ---
Discharge Plan - Med Rec/Dispo Referrals/Follow Up: Linwood Landa MD [Physician] - (See Dr. Landa in [place] on 03/04/17. Have labs drawn including: MAG, LDH, CBC, CMP ) TPrem [Other] (Please make follow-up appointment for 03/04/17) Karen Instructions: New-Onset Seizure in Adults (GEN) Additional Instructions: follow up with DR David at [facility] in one week. Routine olivo catheter care. Get up and walk with someone standing by to assist you You will need 24-hour supervision. You should not be left alone Prescriptions: New Pantoprazole Tab [Protonix Tab] 1 tab PO ACB #30 tab Dexamethasone [Decadron] 4 mg PO TID #42 tab Phenytoin Cap [Phenytek] 300 mg PO HS #30 cap Continue Nicotine Patch [Nicoderm] 14 mg TD DAILY Menthol [Ricola] 1.1 mg MM Q2H PRN PRN Reason: Sore Throat LORazepam [Ativan] 2 mg PO Q4H PRN PRN Reason: Anxiety Milk of Magnesia [Mom] 30 ml PO DAILY PRN PRN Reason: Constipation Acetaminophen 650 mg PO Q4H PRN PRN Reason: Pain Nicotine Polacrilex [Nicotine Gum] 2 mg BC Q2H PRN PRN Reason: nicotine cravings No Action OLANZapine [Zyprexa] 10 mg SL BID Haloperidol [Haldol] 5 mg PO Q4H PRN PRN Reason: Agitation Mag Hydrox/Aluminum Hyd/Simeth [Alum-Mag Hydroxide-Simeth Liq] 30 ml PO Q2H PRN PRN Reason: Acid Reflux Sertraline HCl [Zoloft] 50 mg PO DAILY hydrOXYzine pamoate [Vistaril] 1 cap PO Q8HR PRN PRN Reason: Anxiety - Disposition 01 Discharged Home, Self-Care
--- NOTE | 2017-02-28 14:33 | Discharge Summary ---
Discharge Information Date of admission: 02/20/17 16:17 Anticipated date of discharge: 02/28/17 Attending Physician: Elmo yAala MD Primary care physician: Dr. Shai David at [facility] in [facility] Consults: 02/20/17 17:14 Dietary Consult [CONS] Routine Comment: Reason For Exam: 02/20/17 19:07 Physician Consult [CONS] Routine Consulting Provider: Yaneli Springer Reason For Exam: Lung cancer Ordering Provider has Notified Technical Clerk: Yes Comment: Ed notified Dr Gian Landa, partner of Dr. Springer will follow the patient - Discharge Diagnosis (1) New onset seizure Status: Acute (2) Intracranial mass Problem Details: Found on CT Status: Acute (3) Anemia Status: Acute (4) Mass of right lung Status: Acute (5) Psychosis Status: Acute (6) Hyperglycemia Status: Acute (7) Weight loss Status: Acute (8) Urinary retention Status: Acute (9) Adenocarcinoma of lung Status: Acute - Procedures Procedures: CT-guided lung biopsy of the right upper lobe on 02/24/2017 - Laboratory Labs: 02/28/17 04:42 02/26/17 04:40 Urine drug screen negative - Microbiology Blood Cultures negative - Radiology Radiology: CT head Impression: Areas of vasogenic edema in the left frontal and right parietal lobes with associated rounded higher attenuation nodules raising strong suspicion for metastatic disease. Intracranial infection is also within the differential diagnosis. Hemorrhagic contusions are felt to be less likely given the reported absence of head trauma. Recommend contrast enhanced MRI for further evaluation. CT head chest abdomen and pelvis CT head with: Comparison: None Technique: Axial CT images through the head were performed with IV contrast. Iterative Reconstruction dose reducing technique was utilized. Contrast: Omnipaque 300 67 mL FINDINGS: Focal edema is again noted in the left frontal and parietal lobes. There is a round enhancing mass seen in the area of high attenuation noted previously in the subcortical left frontal lobe. This measures 8 to 9 mm in size. There is also an enhancing lesion in the left parietal lobe in the area of differential attenuation seen on the comparison CT measuring 9 mm in size. There is also an enhancing 6 mm mass at the right occipital ramirez-white junction. No acute intracranial hemorrhage. No obvious territorial stroke. No mass effect or midline shift. The ventricles are normal. The calvarium is intact. Paranasal sinuses and mastoid air cells are grossly clear. Impression: Intracranial metastases. CT chest, abdomen and pelvis with contrast. Comparison: None Technique: Axial CT images were performed through the chest, abdomen and pelvis after the administration of intravenous contrast. Coronal and sagittal two-dimensional reformats. Automated Exposure Control and Iterative Reconstruction dose reducing techniques were utilized. Contrast: Omnipaque 300 67 mL Findings: Chest: There are numerous confluent pleural masses seen filling the right chest cavity with volume loss and associated small pleural effusion. These are too numerous to count but are circumferential around the visceral and parietal pleura. The left lung shows a small nodule in the lingula measuring 0.7 cm in size. There is also a left lower lobe pulmonary nodule measuring 1.5 cm in size. No pneumonia or pneumothorax. The central airways are patent. The thyroid gland appears normal. No axillary adenopathy. There does not appear to be any true mediastinal adenopathy despite the pleural mass along the right mediastinal border. The heart size is normal. Great vessels are within normal limits. No pericardial effusion. There is some slightly increased density in the subareolar right breast area. Abdomen/pelvis: The liver enhances normally. Numerous gallstones within the gallbladder. No bile duct dilatation. The spleen, pancreas and adrenal glands are within normal limits. Small right renal stone. The knees are otherwise normal. No abdominal or pelvic lymphadenopathy. The bladder is mildly distended but otherwise normal. Uterus is unremarkable. No free fluid. No evidence of a bowel obstruction. Bone windows show degenerative change and scoliosis in the spine. No obvious lytic or blastic bony lesions. There are some mild right rib deformities which appear chronic. Impression: 1. Extensive pleural mass throughout the right chest. The appearance is most consistent with malignant mesothelioma with possible contralateral pulmonary metastases. The other differential considerations are pleural metastatic disease and invasive malignant thymoma. Recommend pleural biopsy. 2. No metastatic disease appreciated in the abdomen or pelvis. There is a preliminary report by [facility]. . Chest x-ray IMPRESSION: 1. Numerous pulmonary nodules throughout the right lung. Single left lower lobe pulmonary nodule measuring 1.6 cm. The appearance is not significantly changed from the prior CT chest chest dated three days earlier. - Pathology Pathology-final right upper lobe needle biopsy of the lung Moderately differentiated adenocarcinoma, compatible with primary pulmonary adenocarcinoma, acinar pattern History of Present Illness HPI: Pt came to the ED refered from a psych facility where she had a witnessed grand mal seizure. Per available data I do not see any SSRI, or wellbutrin on this patient medication list. Also UDS was negative. Per ED reports, this event was witnessed; pt had loss of bowel control, and LOC. On initial workup pt has multiple brain lesions that could be infectious or neoplastic. WBC, Lactate and pro-calcitonin elevated. Calcium normal. Pt has H.O being paranoid for at least 5 years. Daughter reports pt had spells of aggresiveness and paranoia with her and brother and had been suicidal in the past. She had been diagnosed with bipolar dissorder and while on treatment apparently improved. No known H.O Cancer, uknown if pt has any risks for HIV, or if she has any auto-immune dissorder. She has been a heavy smoker for many years and has a reported wt loss since Junuary of about 50 pounds. No previuos H/O seizures. On initial interview pt appears to be paranoid. Would not open her mouth for exam. Pupills are about 2mm. Being so miotic I can not comment further, on her eye exam as she would not cooperate. No anisocoria. EOMI appear to be fine but she does not cooperate. She does not answer questions, so it is unknown how oriented she may be. 02/28/17 14:36 Hospital Course Hospital course: ADMIT 02/20/17 This is a patient that presents with new onset seizures and multiple brain lesions. The initial report states this could be neoplastic or infectious. Pt has a 5 year H.O Psychiatric problems with psychosis. It would be very atypical to develop Schizophrenia at this age. Other problems including auto-immune dissorders, endocrine dissorders, nutritional deficiencies are possible. At this time will focus on possibility of a metastatic process with/without infection. Possible source of infection could be lungs (afer a seizure - aspiration) but pt is pretty much asymptomatic. H.O Heavy tobacco abuse favor a tumor, with lung cancer being a likely cause. Daughter states pt has NO KNOWN H.O TB, HIV, or cancer. CT report Impression: Areas of vasogenic edema in the left frontal and right parietal lobes with associated rounded higher attenuation nodules raising strong suspicion for metastatic disease. Intracranial infection is also within the differential diagnosis. Hemorrhagic contusions are felt to be less likely given the reported absence of head trauma. Recommend contrast enhanced MRI for further evaluation. Differential diagnosis 1) New onset seizures, associated with multiple brain lesions. Pt was loaded with Dilantin - will continue at 100mg PO TID. a) Metastatic lesions from ? lung ? breast ? Other solid organs ? No hypercalcemia. b) Infection (With no known source at this time). No suggestion of emboli to the extremities to suspect endocarditis. Work up I have started workup as follows - will repeat Lactic acid if it is lower this could be related to seizure. If it is higher or the same this could be due to infection. Will check CT brain with contrast, CT Chest/Abdomen and Pelvis. This would assist in pointing a primary source of tumor (lungs, liver, pancreas, kindeys, etc) or an occult infection (liver abscess, diverticular abscess, etc). Will readdress once testing is complete. Pt was cultured anticipating the need of antibiotics. May need to consult oncology in the AM. 2) H/O Psychosis for 5 years. - May consult psychiatry in the AM. If initial workup favors infection will probably need ID to advise, and will check HIV, and for other processes ( i.e - if lungs - nocardia coverage would be needed). 3) Anemia, will workup electively. 4) Hyperglycemia. - Check HbA1c - Could be related to steroids. - Will do accuchecks and cover with insulin as needed. 02/21/17 1) New onset seizures, associated with multiple brain lesions, probably due to a primary lung tumor. Abdomen was not found to have a large mass to explain the lung masses. Probably stage IV lung cancer. -No hyponatremia or hypercalcemia. 2) H/O Psychosis for 5 years; not agitated today. 3) Anemia, will workup electively. 4) Hyperglycemia probably related to Steroids (IV). - Check HbA1c 5) Pt had elevated lactic acid on admission which cleared later - this was most likely related to her seizure. Pro-calcitonin was high and WBC was high but WBC is normal today and pt is not on antibiotics and appears to be stable. Plan - await for heme/onc advise. Speech Therapy evaluation to resume PO. 02/22/17: Consult by Dr. Springer I have seen and examined the patient. I met the patient for almost an hour explaining to the him the result of the scans. I showed to the him the scan in the computer. Then we discussed diagnostic procedure and treatment options. I scheduled the patient for a CT guided biopsy on Friday. Then I will meet with the patient and her on Friday or Friday to discuss the plan of care based on the final diagnosis. This is most like a Mesothelioma 02/22/17 1) MULTIPLE LUNG NODULES - PROBABLY LUNG CANCER WITH BRAIN METS, presenting with new onset seizures. Per my conversation with Oncology pt CT chest is suggestive of mesothelioma. Abdomen CT did not show source was not found to have a large mass to explain the lung/brain masses. Unknown histologic type. - No hyponatremia or hypercalcemia. - No respiratory distress. - Oncology saw pt yesterday and she will be having a CT guided biopsy on Friday. 2) H/O Psychosis for 5 years; not agitated today. - Pt is on PRN Haldol and PRN Ativan. - Behaviorally stable in the ICU. 3) Anemia, may consider working up later. 4) Hyperglycemia probably related to Steroids (IV). However wt loss of 50 pounds could be due to underlying malignancy +/- DM - HbA1c NORMAL. 5) Infection ? Pt had elevated lactic acid on admission which cleared later - this was most likely related to her seizure. - Pro-calcitonin was high and WBC was high on admission, WBC dropped yesterday and is up again on same range as on admisison. - Procalcitonin was not repeated. - No fever. 02/23/17 1) MULTIPLE LUNG NODULES - PROBABLY LUNG CANCER WITH BRAIN METS, presenting with new onset seizures. Pt will need a lung biopsy in the AM (Ct guided). told pt daughter to be available to sign consent. - No hyponatremia or hypercalcemia. - No respiratory distress. - Oncology saw pt on 02/21 and she will be having a CT guided biopsy tomorrow. - Remains comfortable. 2) H/O Psychosis for 5 years; not agitated today. - Pt is on PRN Haldol and PRN Ativan. - Behaviorally stable in the ICU. 3) Anemia, may consider working up later. 4) Hyperglycemia probably related to Steroids (IV). However wt loss of 50 pounds could be due to underlying malignancy +/- DM - HbA1c NORMAL. 5) Infection ? Pt had elevated lactic acid on admission which cleared later - this was most likely related to her seizure as it came down rapidly with no antibiotics. - WBC was high on admission, then it came down and it is back up again with L shift. - Pro-calcitonin on admission now it is lower. - No fever. - Continue close observation - pt is at risk of lung infection (post - obstructive PNA) or due to aspiration. 02/24/17 1. Lung nodules and intracranial metastases -CT guided bx planned today -Dr. Springer has already visited with the patient and her ; suspects mesothelioma -continue dexamethasone, taper per oncology 2. New onset sz, secondary to #1 -continue seizure precautions -continue Dilantin 3. Anemia, microcytic -could be secondary to #1 -with recent wt loss of 50 lbs could consider iron studies, could also be done outpt -may want to defer to oncology - additional testing may be warranted 4. Leukocytosis, thrombocytosis -leukocytosis at least partially due to steroids -infection not highly suspected -procalcitonin decreased from 2.16 to 1.49. Lactate trended down. 5. Electrolyte disturbances -hyperkalemia on 02/21, hypokalemia on 02/23, normal on 02/24 -hypernatremia on 02/21, normal on 02/2402/25/17 Lung nodules and intracranial metastases -CT guided biopsy of lung nodule on 02/24/17 -path pending -will need to discuss plan with oncology Urinary retention -Olivo inserted on 02/24/17 with 1L of retention New onset sz -Dilantin changed to PO on 02/24/17 Encephalopathy, improving -usually A&Ox3, occasional confusion noted CBC abnormalities - continue to monitor -Anemia (mild) -Leukocytosis (steroid effect) -Thrombocytosis 02/26 Continue Decadron due to brain mets-change to 4mg po TID as per Onc recommendations; does feel pt will need to be on this for the foreseeable future. Continue Dilantin for seizure control. Olivo Removed - bladder scan due to potential of urinary retention. Encourage ambulation. 02/27 Feel rough. Notes she is urinating frequently-no pain or discomfort with urination. Not eating much as does not like how the food tastes-denies nausea or ab pain. Breathing well. No KABA or visual change. Strength improving slowly. Not having F/C. Continue oral Decadron at 4mg TID. Continue Dilantin 300mg qhs - have not seen further seizure activities. Will have nursing check bladder scan due to frequent urination and recent urinary retention. Anticipate outpatient chemo with Dr Landa in [place]. Likely discharge to home tomorrow. Nursing performed bladder scan - about 750cc urine in bladder. Pt without need/ sensation to urinate. Does not want Olivo at this time. Will strait cath. Check post void bladder scans, strait cath as needed. 02/28/2017-Dr. Chase Patient was seen today accompanied by her . She stated she was feeling okay and denied any pain. Her appetite was good. She denied any shortness of breath or nausea. She was having difficulties with urinary retention after Olivo catheter was removed yesterday, and so Olivo catheter was replaced today. Vital signs are stable. She has had no seizures since prior to admission. She is doing well on Dilantin and Decadron. Psychiatric medications were not restarted during this hospital course. Dr. Landa, oncology partner of Dr. Springer, did come and talk with the patient and her today. They would like to proceed with palliative care as an outpatient at [place]. He plans to see the patient on Friday and schedule a PET scan and an appointment with radiation oncology for next week. He will follow-up on Dilantin level next week. Because of the patient's altered mental status and gait instability she will need 24-hour supervision. I did discuss this with the patient's . He will arrange for family or friends to come and stay with the patient when he is working. We will consult home health for PT, home safety eval, help with Olivo care, medicine management, and to monitor vital signs. The patient is to follow- up with Dr. Shai David in the [facility] at [facility]. I did call his office and left a message for him to call me back at his convenience. On the day of discharge the patient is alert and in no acute distress. She has no focal deficits on neurologic exam. Chest is clear to auscultation. Cardiovascular reveals a regular rate and rhythm. Abdomen is scaphoid, soft and nontender with positive bowel sounds. Extremities are free of edema. Skin is warm and dry and without rashes. Discharged to home today with family. I did discuss with her that she will need 24-hour supervision and standby assist when up walking. She needs to continue with her current medications to help prevent seizures. They should call 911 if the patient does have a seizure. Greater than 45 minutes of time was spent seeing and evaluating the patient and performing discharge process. DVT Prophylaxis: SCD's GI Prophylaxis: Protonix Discharge Plan - Med Rec/Dispo Referrals/Follow Up: Prem Amaro [Other] (Please make follow-up appointment for 03/04/17) Linwood Landa MD [Physician] - (See Dr. Landa in [place] on 03/04/17. Have labs drawn including: MAG, LDH, CBC, CMP ) Karen Instructions: Olivo Catheter Placement and Care (DC), New-Onset Seizure in Adults (GEN), Urinary Leg Bag (GEN) Additional Instructions: follow up with DR David at [facility] in one week. Routine olivo catheter care. Get up and walk with someone standing by to assist you You will need 24-hour supervision. You should not be left alone Prescriptions: New Pantoprazole Tab [Protonix Tab] 1 tab PO ACB #30 tab Dexamethasone [Decadron] 4 mg PO TID #42 tab Phenytoin Cap [Phenytek] 300 mg PO HS #30 cap Continue Nicotine Patch [Nicoderm] 14 mg TD DAILY Menthol [Ricola] 1.1 mg MM Q2H PRN PRN Reason: Sore Throat LORazepam [Ativan] 2 mg PO Q4H PRN PRN Reason: Anxiety Milk of Magnesia [Mom] 30 ml PO DAILY PRN PRN Reason: Constipation Acetaminophen 650 mg PO Q4H PRN PRN Reason: Pain Nicotine Polacrilex [Nicotine Gum] 2 mg BC Q2H PRN PRN Reason: nicotine cravings No Action OLANZapine [Zyprexa] 10 mg SL BID Haloperidol [Haldol] 5 mg PO Q4H PRN PRN Reason: Agitation Mag Hydrox/Aluminum Hyd/Simeth [Alum-Mag Hydroxide-Simeth Liq] 30 ml PO Q2H PRN PRN Reason: Acid Reflux Sertraline HCl [Zoloft] 50 mg PO DAILY hydrOXYzine pamoate [Vistaril] 1 cap PO Q8HR PRN PRN Reason: Anxiety - Disposition 01 Discharged Home, Self-Care
--- NOTE | 2017-02-28 15:16 | Progress Note ---
Oncology Subjective Reclining in hospital bed, at bedside. She is alert, oriented, but flat affect and brief in her responses. States " I'm depressed." General: No fever, no night sweats Eyes: No redness, no pain, no diplopia ENT: No mouth sores, no trouble swallowing Cardiac: No chest pain no palpitations Pulmonary: No cough, no shortness of breath, no wheezing Abdomen: Denies pain today : Quiroz catheter intact Musculoskeletal: No arthritis, no myalgias Neurological: No headaches, no focal weakness. Denies vision changes Skin: No rash, no sores Psychiatric: Positive depression <Nuha Crow - 02/28/17 15:30> Exam Vital signs: Temp Pulse Resp BP Pulse Ox 96.4 F L 98 18 123/71 97 02/28/17 07:00 02/28/17 07:00 02/27/17 23:01 02/28/17 07:00 02/28/17 07:00 <Linwood Landa - 02/28/17 16:33> Temp Pulse Resp BP Pulse Ox 96.4 F L 98 18 123/71 97 02/28/17 07:00 02/28/17 07:00 02/27/17 23:01 02/28/17 07:00 02/28/17 07:00 <Nuha Crow - 02/28/17 15:30> - Constitutional no acute distress, thin, other (flat affect) <Nuha Crow - 02/28/17 15:30> - Routine HEENT Exam Head: Present: normocephalic <Nuha Crow - 02/28/17 15:30> Eye: Present: EOMI, conjunctivae pink <Nuha Crow - 02/28/17 15:30> ENT: Present: mucous membranes moist <Nuha Crow - 02/28/17 15:30> - Routine Neck Exam Present: supple. Absent: tenderness <Nuha Crow - 02/28/17 15:30> Comments: No cervical lymphadenopathy. <Nuha Crow - 02/28/17 15:30> - Routine Chest/Breast/Axilla Exam Axillae: Absent: lymphadenopathy <Nuha Crow - 02/28/17 15:30> - Routine Respiratory Exam Present: diminished air movement. Absent: rhonchi, wheezes, crackles <Nuha Crow - 02/28/17 15:30> - Routine Cardiovascular Exam Present: RRR. Absent: murmur <Nuha Crow - 02/28/17 15:30> - Routine Abdominal Exam Present: soft, normoactive bowel sounds. Absent: tenderness, organomegaly < Nuha Crow - 02/28/17 15:30> - Routine Extremities Exam Present: no edema, non tender, full ROM <Nuha Crow - 02/28/17 15:30> - Routine Skin Exam Present: intact, dry <Nuha Crow - 02/28/17 15:30> - Routine Neurological Exam Present: alert, moving all extremities <Nuha Crow 02/28/17 15:30> - Routine Psychiatric Exam Present: depressed. Absent: agitated <Nuha Crow 02/28/17 15:30> Comments: Flat affect. Verbalizes I'm depressed. Denies suicidal ideation <Nuha Crow - 02/28/17 15:30> Oncology Results - Labs CBC & Chem 7: 02/28/17 04:42 02/26/17 04:40 <Linwood Landa - 02/28/17 16:33> Labs: Short CBC 02/28/17 Range/Units 04:42 WBC 17.3 H (4.5-11.0) T/MM3 Hgb 10.4 L (12-16) GM/DL Hct 34.6 L (36-46) % Plt Count 447 H (130-400) T/MM3 <Linwood Landa - 02/28/17 16:33> Short CBC 02/28/17 Range/Units 04:42 WBC 17.3 H (4.5-11.0) T/MM3 Hgb 10.4 L (12-16) GM/DL Hct 34.6 L (36-46) % Plt Count 447 H (130-400) T/MM3 <Nuha Crow Linda - 02/28/17 15:30> Progress Note-A&P (1) New onset seizure Status: Acute Assessment and plan: Continue Dilantin (2) Seizure Status: Acute (3) Intracranial mass Problem details: Found on CT Status: Acute Assessment and plan: Will see Dr. Fu, radiation oncologist on outpatient basis (4) Pleural mass Status: Acute Assessment and plan: Await final pathology results. Dr. Landa will see as outpatient. Discussed with patient chemotherapy can be oral or intravenous, will be done as an outpatient. Reviewed basics of chemotherapy, potential side effects are dependent on drug used-usually biggest concerns are infection, potential for nausea vomiting, fatigue. Again reviewed this is all dependent on the drug used. Orders for follow-up with Dr. Landa 03/04/17 with CBC, CMP, magnesium, and LDH. (5) Anemia Status: Acute Assessment and plan: Will continue to follow. (6) Mass of right lung Status: Acute (7) Mass of right lung Status: Acute (8) Hyperglycemia Status: Acute (9) Weight loss Status: Acute <MignonNuha Linda - 02/28/17 15:13> (1) Intracranial mass Problem details: Found on CT Status: Acute (2) New onset seizure Status: Acute Assessment and plan: Will get Dilantin level on Friday (3) Seizure Status: Acute (4) Pleural mass Status: Acute Assessment and plan: Adenocarcinoma of the lung with Positive TTF, CK 7, compatible with lung cancer. Will need radiation to brain, Pet scan, PD L1 Alk, EGFR, and Ros 1. Will get PET on Friday and follow up in [place] I discussed disease with patient and , Coordinated care, scheduled PET and XRT appointment and appointment to see me on 03/04/17. Will get CBC, CMP,LDH, MG, CEA AND DILANTIN LEVEL at that time. I participated in the development of the plan of care of this patient, Chart reviewed and patient examined. (5) Anemia Status: Acute Assessment and plan: Hemoglobin 10.4. Stable (6) Mass of right lung Status: Acute (7) Mass of right lung Status: Acute (8) Hyperglycemia Status: Acute (9) Weight loss Status: Acute <Linwood Landa - 02/28/17 16:33> - Time Spent With Patient Total time spent is greater than 50% in coordination of care (as documented) at patient's floor/unit and/or counseling patient: <Linwood Landa - 02/28/17 16:33> Total time spent is greater than 50% in coordination of care (as documented) at patient's floor/unit and/or counseling patient: <Nuha Crow - 02/28/17 15:30> 25 - 35 minutes <Nuha Crow - 02/28/17 15:30> Sepsis Assessment - Evaluation Sepsis screening result: No Definite Risk <Nuha Crow - 02/28/17 15:30> SIRS Criteria: none, temperature > or equal to 100.4, WBC > or equal to 12,000, blood sugar >120 in non-diabetic <Nuha Crow - 02/28/17 15:30> Severe Sepsis: none seen <Nuha Crow - 02/28/17 15:30> - Focused Exam Vital Signs Temp Pulse BP Pulse Ox 02/28/17 07:00 96.4 F L 98 123/71 97 <Linwood Landa D - 02/28/17 16:33> Vital Signs Temp Pulse BP Pulse Ox 02/28/17 07:00 96.4 F L 98 123/71 97 <Nuha Crow - 02/28/17 15:30> Respiratory exam: Present: CTA bilaterally <Nuha Crow - 02/28/17 15:30> Cardiovascular exam: Present: RRR <Nuha Crow - 02/28/17 15:30> Capillary refill: < 2-3 Seconds <Nuha Crow - 02/28/17 15:30>
== END 2017-02-28 15:11 | disposition home health service (06) | DRG 100 ==
LOC: ED 11:43 → CCU 16:10 → EDHOLD 16:17 → CCU 16:28 → MED 02-22 14:14
PROVIDERS: ADMIT Internal Medicine; ATTEND Hospitalist